=== PATIENT | female | born 1950 | race Caucasian/White ===

== ENCOUNTER 2016-04-01 13:03 | Outpatient (CLI) | payer MEDICARE, OTHER ==
[2016-01-10 17:40] VITALS: BP 153/62
== END 2016-04-01 13:04 ==
LOC: POD 13:03
PROVIDERS: ATTEND Podiatrist
DX: B35.1 Tinea unguium (principal); M79.674 Pain in right toe(s); M79.675 Pain in left toe(s)
CPT/HCPCS: 11721; G0463

== ENCOUNTER 2016-06-03 09:39 | Outpatient (CLI) | payer MEDICARE, OTHER ==
[2016-01-10 17:40] VITALS: BP 153/62
== END 2016-06-03 09:40 ==
LOC: RT 09:39
PROVIDERS: ATTEND Internal Medicine Cardiovascular Disease
DX: I48.0 Paroxysmal atrial fibrillation (principal)

== ENCOUNTER 2016-06-08 14:09 | Outpatient (CLI) | payer MEDICARE, OTHER ==
[2016-01-10 17:40] VITALS: BP 153/62
== END 2016-06-08 14:10 ==
LOC: RT 14:09
PROVIDERS: ATTEND Internal Medicine Cardiovascular Disease
DX: I48.0 Paroxysmal atrial fibrillation (principal)

== ENCOUNTER 2016-06-21 15:26 | Outpatient (CLI) | payer MEDICARE, OTHER ==
[2016-01-10 17:40] VITALS: BP 153/62
== END 2016-06-21 15:27 ==
LOC: POD 15:26
PROVIDERS: ATTEND Podiatrist
DX: B35.1 Tinea unguium (principal); M79.674 Pain in right toe(s); M79.675 Pain in left toe(s)
CPT/HCPCS: 11721; G0463

== ENCOUNTER 2016-06-27 11:17 | Outpatient (CLI) | payer MEDICARE, OTHER ==
[2016-01-10 17:40] VITALS: BP 153/62
--- NOTE | 2016-06-27 15:41 | Diagnostic Imaging Report ---
[facility] [address] [facility].[address] [address] Report Submission Date: Jun 27, 2016 2:00:36 PM CDT Patient Study Name: OVIDIO WANG Date: Jun 27, 2016 11:24:39 AM CDT Modality Type: CR Gender: F Description: SHOULDER : 46 [facility] Physician: RADHA FORBES (STRAIGHTEDGE MAN) - OP Left shoulder -two views CLINICAL HISTORY: Pain. Decreased range of motion. FINDINGS: Examination left shoulder in AP view with internal and external rotation of the humerus fails to demonstrate evidence of fracture. There is minimal apical pleural thickening. Aortic stent graft is evident overlying the region of the aortic arch. IMPRESSION: Negative left shoulder. Electronically signed on Jun 27, 2016 2:00:36 PM CDT by: Christopher NEWMAN
--- NOTE | 2016-06-27 16:31 | Diagnostic Imaging Report ---
[facility] [address] [address] Report Submission Date: Jun 27, 2016 4:30:19 PM CDT Patient Study Name: OVIDIO WANG Date: Jun 27, 2016 11:27:23 AM CDT Modality Type: CR Gender: F Description: ABDOMEN : 46 Institution: [facility] Physician: RADHA FORBES (PRIVATE WEALTH ADVISOR) - OP Abdomen - one-view Clinical history: Nausea. Constipation. Findings: Examination abdomen in single AP view with comparison to examination of 05/27/2015 demonstrates thoracolumbar scoliosis. There are multiple surgical clips in the right side of the abdomen. Abdominal bowel gas pattern is unremarkable without evidence of obstruction or free air. There are no unusual intra-abdominal calcifications. Impression: 1. Postoperative abdomen. 2. Scoliosis. 3. No significant change. Electronically signed on Jun 27, 2016 4:30:19 PM CDT by: Christopher NEWMAN
== END 2016-06-27 11:20 ==
LOC: RAD 11:17
PROVIDERS: ATTEND Nurse Practitioner Family
DX: K59.00 Constipation, unspecified (principal)
CPT/HCPCS: 73030; 74020

== ENCOUNTER 2016-07-06 11:55 | Outpatient (CLI) | payer MEDICARE, OTHER ==
[2016-01-10 17:40] VITALS: BP 153/62
== END 2016-07-06 11:56 ==
LOC: RT 11:55
PROVIDERS: ATTEND Internal Medicine Cardiovascular Disease
DX: I48.0 Paroxysmal atrial fibrillation (principal)

== ENCOUNTER 2016-09-08 09:42 | Outpatient (CLI) | payer MEDICARE, OTHER ==
[2016-01-10 17:40] VITALS: BP 153/62
== END 2016-09-08 09:43 ==
LOC: RT 09:42
PROVIDERS: ATTEND Internal Medicine Cardiovascular Disease
DX: I48.0 Paroxysmal atrial fibrillation (principal)

== ENCOUNTER 2016-09-12 09:23 | Outpatient (CLI) | payer MEDICARE, OTHER ==
[2016-01-10 17:40] VITALS: BP 153/62
== END 2016-09-12 09:24 ==
LOC: RT 09:23
PROVIDERS: ATTEND Internal Medicine Cardiovascular Disease
DX: I48.0 Paroxysmal atrial fibrillation (principal)

== ENCOUNTER 2016-09-14 14:39 | Outpatient (CLI) | payer MEDICARE, OTHER ==
[2016-01-10 17:40] VITALS: BP 153/62
[2016-09-14 15:12] LABS: MEAN CORPUSCULAR HEMOGLOBIN 32.8 pg (28.0-34.0); MEAN CORPUSCULAR VOLUME 99.9 fl (80.0-100.0)
[2016-09-14 15:41] LABS: eGFR (African) > 60; eGFR (Non-African) > 60
[2016-09-15 00:21] LABS: T3 TOTAL 104.3 ng/dL (80.0-200.0); T3-UPTAKE 31.4 % (25.4-41.2)
== END 2016-09-14 14:40 ==
LOC: LAB 14:39
PROVIDERS: ATTEND Internal Medicine Cardiovascular Disease
DX: I48.0 Paroxysmal atrial fibrillation (principal)
CPT/HCPCS: 36415; 80048; 84436; 84439; 84443; 84479; 84480; 85027

== ENCOUNTER 2016-09-14 15:28 | Emergency (ER) | payer MEDICARE, OTHER ==
[2016-09-14 16:28] LABS: BASOPHILS % 1.7 (0.0-1.5); EOSINOPHILS % 1.9 % (0.0-6.8); MEAN CORPUSCULAR HEMOGLOBIN 33.6 pg (28.0-34.0); MEAN CORPUSCULAR VOLUME 98.1 fl (80.0-100.0); MONOCYTES % 7.7 % (0.0-11.0); NEUTROPHILS # 3.6 # k/uL (1.4-7.7)
[2016-09-14 16:42] LABS: eGFR (African) > 60; eGFR (Non-African) > 60
[2016-09-14] MEDS ORDERED: ONDANSETRON HCL 4 MG TAB.RAPDIS PO ONE (16:50)
--- NOTE | 2016-09-14 16:57 | ED Physician Documentation ---
Chest Pain - HISTORIAN Historian: patient, spouse - HPI Stated Complaint: Chest Pressure Chief Complaint: Chest Pain Additional Information: she has chronic intermittant A-fib. This happened 1 week ago. It happenend this morning and cont. She has a young adult librarian but has been unable tospeak with him. she is well known here and at [facility]. the cardilogy nurse told her to come to [facility]. she came here. She atates that she has never had her a- fib corrected in the ER and always has to be admitted. She has no new meds. She has the same signs and symptoms as from prev episodes. Onset: hours Timing: sudden onset Duration: constant Last known Well Date: 09/14/16 Last Known Well Time: 16:21 Last known Well Code/Unknown Code: Unknown Context: sleep Severity: mild Quality: tightness Chest Pain Radiation: no radiation Chest Pain Signs/Symptoms: denies: nausea, vomiting, diaphoresis, cool extremities, dizziness, dyspnea Worsened By: nothing Relieved By: nothing Further Comments: no - ROS CONST: none MS/LYMPH: none GI/: none EYES/ENT: none SKIN/ENDO: none NEURO/PSYCH: none - PAST HX NE risk factors: hypertension, A-Fib DVT/PE Risk Factors: none TAD/AAA risk factors: none Neuro deficit: none GI disease: none Lung disease: none Surgeries/Procedures: none Allergies/Adverse Reactions: Allergies Allergy/AdvReac Type Severity Reaction Status Date / Time codeine Allergy Intermediate Hallucinati Verified 01/10/16 17:39 ons Penicillins Allergy Intermediate Hives Verified 01/10/16 17:39 Sulfa (Sulfonamide Allergy Intermediate Hives Verified 01/10/16 17:39 Antibiotics) Home Medications: Ambulatory Orders Medication Instructions Recorded Potassium Chloride 20 meq PO D 04/24/13 Apixaban [Eliquis] 5 mg PO BID 10/18/13 Isosorbide Mononitrate [Isosorbide 30 mg PO HS 10/18/13 Mononitrate ER] Nifedipine [Nifedipine ER] 30 mg PO DAILY 10/16/14 Sotalol HCl [Betapace] 120 mg PO BID 10/16/14 Esomeprazole Magnesium [Nexium] 40 mg PO DAILY 01/29/15 Docusate Sodium [Colace] 200 mg PO BID 04/27/15 Lisinopril 10 mg PO BID 04/27/15 Lubiprostone [Amitiza] 24 mcg PO DAILY 04/27/15 Polyethylene Glycol 3350 [Miralax] 17 gm PO DAILY 05/27/15 Bethanechol Chloride [Bethanechol 25 mg 09/14/16 Chloride] - SOCIAL HX Smoking History: non-smoker Alcohol Use: none Drug Use: none - FAMILY HX Family HX: none - VITAL SIGNS Vital Signs: Vital Signs Temp Pulse Resp BP Pulse Ox 97.6 F 102 H 16 149/80 95 09/14/16 15:30 09/14/16 15:30 09/14/16 15:30 09/14/16 15:30 09/14/16 15:30 - REVIEWED ASSESSMENTS Nursing Assessment Reviewed: Yes Vitals Reviewed: Yes Progress - Results/Orders Results/Orders: she remains stable, and as she prev stated, no time have they ever converted her A-fib in the ER. We talked to her and she will follow up with her crdiologist. Return if symptoms change. ED Results Lab/Radiology - Lab Results Lab Results: labs all look ok - Orders Orders: ED Orders Category Date Time Status Continuous EKG monitoring Q30M Care 09/14/16 16:16 Ordered Continuous Pulse Oximetry Q30M Care 09/14/16 16:16 Ordered CHEST 1 VIEW [RAD] Stat Exams 09/14/16 16:16 Ordered CBC/PLATELET/DIFF Routine Lab 09/14/16 16:16 Ordered CKMB Stat Lab 09/14/16 Ordered CMP Routine Lab 09/14/16 16:16 Ordered CREATINE KINASE Routine Lab 09/14/16 16:16 Ordered TROPONIN I (cTnI) Stat Lab 09/14/16 16:16 Ordered Oxygen Daily Oxygen 09/14/16 16:30 Ordered EKG WITH COMPARISON Stat Ther 09/14/16 16:16 Ordered Chest Pain Physical Exam - EXAM General Appearance: mild distress, anxious EENT: ENT inspection normal, no signs of dehydration Neck: nml inspection, no carotid bruit Respiratory: no resp. distress, chest non-tender, nml breath sounds CVS: pulses equal, irregularly irreg. rhythm Abdomen: soft Skin: warm/dry, normal color Extremities: non-tender, no edema Neuro: oriented X3 Discharge Clincal Impression: Atrial fib/flutter, transient Anxiety disorder Qualifiers: Anxiety disorder type: unspecified anxiety disorder Qualified Code(s): F41.9 - Anxiety disorder, unspecified Referrals: Olivia Diaz PRN [Primary Care Provider] - 2 Days Home Medications: Ambulatory Orders Potassium Chloride 20 meq PO D 04/24/13 Apixaban [Eliquis] 5 mg PO BID 10/18/13 Isosorbide Mononitrate [Isosorbide Mononitrate ER] 30 mg PO HS 10/18/13 Nifedipine [Nifedipine ER] 30 mg PO DAILY 10/16/14 Sotalol HCl [Betapace] 120 mg PO BID 10/16/14 Esomeprazole Magnesium [Nexium] 40 mg PO DAILY 01/29/15 Docusate Sodium [Colace] 200 mg PO BID 04/27/15 Lisinopril 10 mg PO BID 04/27/15 Lubiprostone [Amitiza] 24 mcg PO DAILY 04/27/15 Polyethylene Glycol 3350 [Miralax] 17 gm PO DAILY 05/27/15 Bethanechol Chloride [Bethanechol Chloride] 25 mg 09/14/16 Condition: Stable Disposition: 01 HOME, SELF-CARE Decision to Admit: NO Date of Decison to Admit: 09/14/16 Decision Time: 16:57
[2016-09-14 17:06] VITALS: BP 130/68
--- NOTE | 2016-09-14 19:00 | Diagnostic Imaging Report ---
NADIA NEAL [facility] [address] [facility].[address] [address] Report Submission Date: Sep 14, 2016 4:39:32 PM CDT Patient Study Name: OVIDIO WANG Date: Sep 14, 2016 4:18:35 PM CDT Modality Type: CR Gender: F Description: CHEST : 46 Institution: [facility] Physician: NADIA NEAL Examination: Portable chest History: Chest discomfort Findings: Single view of the chest demonstrates normal cardiac size. Surgical mesh in the region of the aortic arch. Apical parenchymal scarring. Right hemithorax volume loss. No blunting of the costophrenic margins. Osseous structures are appropriate for age. Impression: Apical parenchymal scarring and right volume loss. No gross basilar effusion or consolidation. Correlate with older exams and pertinent history. Electronically signed on Sep 14, 2016 4:39:32 PM CDT by: Luis Enrique NEWMAN
== END 2016-09-14 17:05 | disposition home or self-care (01) ==
LOC: ED 15:28
DX: I48.91 Unspecified atrial fibrillation (principal); F41.9 Anxiety disorder, unspecified; Z59.0 Homelessness
CPT/HCPCS: 71010; 80053; 82550; 82553; 84484; 85025; 99283; S1016

== ENCOUNTER 2016-10-04 14:02 | Outpatient (CLI) | payer MEDICARE, OTHER | END 2016-10-04 14:03 | LOC: POD 14:02 | PROVIDERS: ATTEND Podiatrist | DX: B35.1 Tinea unguium (principal); M79.674 Pain in right toe(s); M79.675 Pain in left toe(s) | CPT/HCPCS: 11721; G0463 ==

== ENCOUNTER 2016-10-14 13:17 | Outpatient (CLI) | payer MEDICARE, OTHER | END 2016-10-14 13:27 | LOC: RT 13:17 | PROVIDERS: ATTEND Internal Medicine Cardiovascular Disease | DX: Z53.9 Procedure and treatment not carried out, unspecified reason (principal) ==

== ENCOUNTER 2016-10-14 13:54 | Emergency (ER) | payer MEDICARE, OTHER ==
[2016-10-14] MEDS ORDERED: HEPARIN SODIUM,PORCINE/D5W 20,000 UNIT in PREMIX BAG 1 BAG IV ONE (14:07)
[2016-10-14] MEDS ORDERED: 0.9 % SODIUM CHLORIDE 1,000 ML IV ONE (14:11)
--- NOTE | 2016-10-14 14:13 | ED Physician Documentation ---
Chest Pain - HISTORIAN Historian: patient - HPI Stated Complaint: chest pain Chief Complaint: Chest Pain Additional Information: feels like back in a-fib Onset: minutes (30) Timing: sudden onset Duration: constant Last known Well Date: 10/14/16 Last Known Well Time: 13:00 Last known Well Code/Unknown Code: Unknown Context: activity Severity: moderate Quality: pressure, other (irregularity) Chest Pain Radiation: no radiation Chest Pain Signs/Symptoms: denies: nausea, vomiting Worsened By: nothing Relieved By: nothing Further Comments: no - ROS CONST: none MS/LYMPH: none GI/: none EYES/ENT: none SKIN/ENDO: none - PAST HX [place] risk factors: other (a-fib) DVT/PE Risk Factors: none TAD/AAA risk factors: none Neuro deficit: none GI disease: none Lung disease: none Surgeries/Procedures: pacemaker Immunizations: referred to PCP Allergies/Adverse Reactions: Allergies Allergy/AdvReac Type Severity Reaction Status Date / Time codeine Allergy Intermediate Hallucinati Verified 10/14/16 14:20 ons Penicillins Allergy Intermediate Hives Verified 10/14/16 14:20 Sulfa (Sulfonamide Allergy Intermediate Hives Verified 10/14/16 14:20 Antibiotics) Home Medications: Ambulatory Orders Medication Instructions Recorded Potassium Chloride 20 meq PO D 04/24/13 Apixaban [Eliquis] 5 mg PO BID 10/18/13 Isosorbide Mononitrate [Isosorbide 30 mg PO HS 10/18/13 Mononitrate ER] Nifedipine [Nifedipine ER] 30 mg PO DAILY 10/16/14 Sotalol HCl [Betapace] 120 mg PO BID 10/16/14 Esomeprazole Magnesium [Nexium] 40 mg PO DAILY 01/29/15 Docusate Sodium [Colace] 200 mg PO BID 04/27/15 Lisinopril 10 mg PO BID 04/27/15 Lubiprostone [Amitiza] 24 mcg PO DAILY 04/27/15 Polyethylene Glycol 3350 [Miralax] 17 gm PO DAILY 05/27/15 Bethanechol Chloride [Bethanechol 25 mg 09/14/16 Chloride] - SOCIAL HX Smoking History: non-smoker Alcohol Use: none Drug Use: none - FAMILY HX Family HX: none - VITAL SIGNS Vital Signs: Vital Signs Temp Pulse Resp BP Pulse Ox 130/68 09/14/16 17:05 - REVIEWED ASSESSMENTS Nursing Assessment Reviewed: Yes Vitals Reviewed: Yes Progress - Results/Orders Results/Orders: cbc, cmp, trop, pt/ptt/inr, cxr, ekg ordered - Progress Progress: pt. stable in er, bp 117/73, temp 98.1, pt. rates chest pain as 0/10 with medications running - see discharge page for treatment given Critical Care Note - Critical Care Note Total Time (mins): 0 ED Results Lab/Radiology - Lab Results Lab Results: pending - Radiology Radiology Impressions: clear of infiltrate - Orders Orders: ED Orders Category Date Time Status Place IV Lock 1T Care 10/14/16 14:02 Ordered CHEST 1 VIEW [RAD] Stat Exams 10/14/16 Ordered CBC/PLATELET/DIFF Routine Lab 10/14/16 Ordered CMP Routine Lab 10/14/16 Ordered PT-INR Routine Lab 10/14/16 Ordered PTT Routine Lab 10/14/16 Ordered TROPONIN I (cTnI) Stat Lab 10/14/16 Ordered Aspirin Med 10/14/16 14:05 Once 325 mg PO NOW ONE Heparin Sodium [Heparin] Med 10/14/16 14:05 Once 5,000 unit IVP NOW ONE Heparin Sodium,Porcine/D5w [Heparin] 20,000 unit Med 10/14/16 14:07 Ordered Premix Bag [Premix Fluid] 1 bag IV NOW NITROGLYCERIN/D5W @ 6 MLS/HR(250ml) Med 10/14/16 14:05 Ordered Nitroglycerin/D5w [Ntg 0.2 mg/ml in D5w] 50 mg in 250 ml IV 1T EKG WITH COMPARISON Stat Ther 10/14/16 Ordered Chest Pain Physical Exam - EXAM General Appearance: alert, mild distress, other (chest pain 0/10 after meds) EENT: eye inspection normal, ENT inspection normal, pharynx normal, no signs of dehydration, DARBY, no nystagmus Neck: nml inspection, no carotid bruit Respiratory: no resp. distress, nml breath sounds, other (chest tender from pacer insertiona dn bruised) CVS: irregularly irreg. rhythm Abdomen: soft, no organomegaly, normal bowel sounds, no abdominal bruit, no distension, non-tender Skin: warm/dry, normal color, other (bruising pacer insertion site) Extremities: non-tender, normal range of motion Neuro: oriented X3, CN's nml as tested, motor nml, sensation nml, mood/affect nml, cognition normal Discharge Clincal Impression: STEMI (ST elevation myocardial infarction) Qualifiers: Involved coronary artery: LAD coronary artery Qualified Code(s): I21.02 - ST elevation (STEMI) myocardial infarction involving left anterior descending coronary artery Referrals: Olivia Diaz, PRN [Primary Care Provider] - 2 Days Home Medications: Ambulatory Orders Potassium Chloride 20 meq PO D 04/24/13 Apixaban [Eliquis] 5 mg PO BID 10/18/13 Isosorbide Mononitrate [Isosorbide Mononitrate ER] 30 mg PO HS 10/18/13 Nifedipine [Nifedipine ER] 30 mg PO DAILY 10/16/14 Sotalol HCl [Betapace] 120 mg PO BID 10/16/14 Esomeprazole Magnesium [Nexium] 40 mg PO DAILY 01/29/15 Docusate Sodium [Colace] 200 mg PO BID 04/27/15 Lisinopril 10 mg PO BID 04/27/15 Lubiprostone [Amitiza] 24 mcg PO DAILY 04/27/15 Polyethylene Glycol 3350 [Miralax] 17 gm PO DAILY 05/27/15 Bethanechol Chloride [Bethanechol Chloride] 25 mg 09/14/16 Comments: EKG faxed to [facility], pt. given nitro drip at 10 mcg/min, 5000 units heparin bolus and 1000 units/hr drip, 324 mg asa orally. Condition: Critical Disposition: XFER SHT-TRM HOSP Decision to Admit: NO Decision Time: 02:10
[2016-10-14 14:15] LABS: BASOPHILS % 1.2 (0.0-1.5); EOSINOPHILS % 3.9 % (0.0-6.8); MEAN CORPUSCULAR HEMOGLOBIN 33.4 pg (28.0-34.0); MEAN CORPUSCULAR VOLUME 100.4 fl (80.0-100.0)
[2016-10-14] MEDS: NITROGLYCERIN/D5W 50 MG/250 ML ML IV ONE (14:24)
[2016-10-14] MEDS: 0.9 % SODIUM CHLORIDE 1,000 ML IV SCH (14:24)
[2016-10-14] MEDS: ASPIRIN 325 MG TABLET PO ONE (14:24)
[2016-10-14] MEDS: HEPARIN SODIUM 5000 UNIT/1 ML IVP ONE (14:24)
[2016-10-14 14:31] VITALS: BP 108/59
[2016-10-14 14:32] LABS: eGFR (African) > 60; eGFR (Non-African) > 60
--- NOTE | 2016-10-14 14:47 | Diagnostic Imaging Report ---
MIRZA BRO [facility] [address] [facility].[address] [address] Report Submission Date: Oct 14, 2016 2:17:20 PM CDT Patient Study Name: OVIDIO WANG Date: Oct 14, 2016 2:02:36 PM CDT Modality Type: CR Gender: F Description: CHEST : 46 Institution: [facility] Physician: MIRZA BRO Chest -one view CLINICAL HISTORY: Chest pain. Abnormal electrocardiogram. FINDINGS: Examination of the chest single portable AP view 10/14/2016 1402 hr with comparison to examination of 09/14/2016 demonstrates bilateral apical pleural thickening without significant change. Cardiovascular and mediastinal silhouettes are stable. Aortic stent graft is seen at the level of the thoracic aortic arch. There has been interval placement of right-sided transvenous pacemaker. Monitor leads superimpose the chest. There is no pneumothorax. IMPRESSION: Interval placement right transvenous pacemaker. Otherwise no significant change. Electronically signed on Oct 14, 2016 2:17:20 PM CDT by: Christopher NEWMAN
== END 2016-10-14 14:28 | disposition short-term general hospital (02) ==
LOC: ED 13:54
DX: I21.02 ST elevation (STEMI) myocardial infarction involving left anterior descending coronary artery (principal)
CPT/HCPCS: 71010; 80053; 84484; 85025; 85610; 85730; 93005; A9270; J1644; J3490; J7030; 96365; 96366; 96376; 99284; S1016

== ENCOUNTER 2016-11-21 13:38 | Emergency (ER) | payer MEDICARE, OTHER ==
--- NOTE | 2016-11-21 13:53 | ED Physician Documentation ---
General Adult - HISTORIAN Historian: patient, spouse, paramedics - HPI Stated Complaint: fall, hip pain, hit head Chief Complaint: General Adult Onset: minutes Timing: still present Severity: moderate Further Comments: yes (Pt is a 66 yo female who fell at home while doing laundry. Pt has hx Afib, CAD, HTN, CHF, LA and had a pacemaker placed last month. It is unclear whether pt simply tripped and fell or whether she became light headed. Pt struck her head quite hard according to spouse and has a hematoma on the R side of her forehead. Pt denies LOC. Pt takes Xarelto. Pt has had significant edema in her lower extemities and has SpO2=86% on presentation. Pt is on 2 L [place] home O2. Pt states that she had chest pain during the night last night. Denies n/v.) - ROS CONST: weakness EYES/ENT: none CVS/RESP: shortness of breath MS/SKIN/LYMPH: leg swelling, ankle swelling NEURO/PSYCH: other (weakness) - PAST HX Past History: other (Afib, CAD, HTN, LA, recent pacemaker, ibs, anemia.) Surgeries/Procedures: other (pacemaker) Allergies/Adverse Reactions: Allergies Allergy/AdvReac Type Severity Reaction Status Date / Time codeine Allergy Intermediate Hallucinati Verified 11/21/16 14:22 ons Penicillins Allergy Intermediate Hives Verified 11/21/16 14:22 Sulfa (Sulfonamide Allergy Intermediate Hives Verified 11/21/16 14:22 Antibiotics) Home Medications: Ambulatory Orders Medication Instructions Recorded Apixaban [Eliquis] 5 mg PO BID 10/18/13 Isosorbide Mononitrate [Isosorbide 60 mg PO HS 10/18/13 Mononitrate ER] Esomeprazole Magnesium [Nexium] 40 mg PO BID 01/29/15 Lisinopril 20 mg PO BID 04/27/15 Bethanechol Chloride [Bethanechol 25 mg PO BID 09/14/16 Chloride] Amiodarone HCl [Pacerone] 200 mg PO DAILY 11/21/16 Carvedilol [Coreg] 12.5 mg PO BID 11/21/16 Dicyclomine HCl [Dicyclomine HCl] 10 mg PO QID 11/21/16 Furosemide [Furosemide] 20 mg PO DAILY 11/21/16 Omeprazole [Prilosec] 40 mg PO BID 11/21/16 Ondansetron HCl Rapdis [Zofran ODT] 4 mg PO QID PRN 11/21/16 Pantoprazole Sodium [Protonix] 40 mg PO BID 11/21/16 Paroxetine HCl [Paxil] 40 mg PO DAILY 11/21/16 Spironolactone [Aldactone] 25 mg PO DAILY 11/21/16 Tamsulosin HCl [Flomax] 0.4 mg PO DAILY 11/21/16 - SOCIAL HX Smoking History: other (former smoker with heavy smoking hx) - FAMILY HX Family History: No - VITAL SIGNS Vital Signs: Vital Signs Temp Pulse Resp BP Pulse Ox 108/59 10/14/16 14:28 - REVIEWED ASSESSMENTS Nursing Assessment Reviewed: Yes Vitals Reviewed: Yes Progress - Progress Progress: Lasix 40 mg IV KCl [address] head: Age related changes. No acute parenchymal process. No hemorrhage. Scalp hematoma. X-ray R hip: Small avulsion involving the greater trochanter. No other fractures or hip dislocation. CXR: Single view of the chest demonstrates a prominent cardiac silhouette. Moderate bibasilar effusion/consolidations, left greater than right. Apical parenchymal interstitial prominence. Stent involving the aortic arch. Right sided cardiac pacemaker. Osseous structures are appropriate for age. Transfer to [facility], Dr. Palm. - EKG/XRAY/CT EKG: rhythm (paced rhythm; non-specific ST & T wave abnormality.) General Adult Physical Exam - PHYSICAL EXAM GENERAL APPEARANCE: moderate distress EENT: eye inspection normal, pharynx normal NECK: normal inspection, supple RESPIRATORY: chest non-tender, rales CVS: heart sounds normal ABDOMEN: soft, no organomegaly, normal bowel sounds BACK: normal inspection, no CVA tenderness SKIN: pallor EXTREMITIES: normal range of motion, edema (3+ edema b/l LE's) NEURO: oriented X3, motor nml, sensation nml Discharge Clincal Impression: fall, Minor head trauma, small avulsion fx, R hip CHF exacerbation Qualifiers: Congestive heart failure type: unspecified congestive heart failure type Qualified Code(s): I50.9 - Heart failure, unspecified Referrals: Olivia Diaz PRN [Primary Care Provider] - Condition: Stable Decision to Admit: NO Decision Time: 17:00
[2016-11-21 14:17] LABS: BASOPHILS % 0.3 (0.0-1.5); EOSINOPHILS % 2.4 % (0.0-6.8); MEAN CORPUSCULAR HEMOGLOBIN 31.4 pg (28.0-34.0); MONOCYTES % 5.8 % (0.0-11.0); NEUTROPHILS # 6.8 # k/uL (1.4-7.7)
[2016-11-21 14:36] LABS: eGFR (African) > 60; eGFR (Non-African) > 60
[2016-11-21] MEDS: POTASSIUM CHLORIDE 20 MEQ TABLET.ER PO ONE (15:23)
[2016-11-21] MEDS: FUROSEMIDE 20 MG/2 ML VIAL IVP ONE (15:31)
--- NOTE | 2016-11-21 16:23 | Diagnostic Imaging Report ---
[facility] [address] [facility] [address] [place] [address]. [id number] Report Submission Date: Nov 21, 2016 3:22:36 PM CDT Patient Study Name: OVIDIO WANG Date: Nov 21, 2016 2:41:27 PM CDT Modality Type: CT\SR Gender: F Description: CT BRAIN W/O CONTRAST : 46 Institution: [facility] Physician: GREGORY CONRAD - JUANA Examination: CT head without contrast History: Fall Comparison exam: None available Technique: Noncontrast head CT protocol. Findings: Ventricles and sulci are consistent for patient age. Cerebrocerebellar parenchyma demonstrates periventricular low attenuation consistent with small vessel disease. No evidence for parenchymal hemorrhage. No evidence for mass or mass effect. No midline shift. No extra axial fluid collections. Partial visualization of the paranasal sinuses, mastoid air cells, orbits, and skull without gross regularity. Right anterior scalp hematoma. Impression: Age related changes. No acute parenchymal process. No hemorrhage. Scalp hematoma. Electronically signed on Nov 21, 2016 3:22:36 PM CDT by: Luis Enrique NEWMAN
--- NOTE | 2016-11-21 16:23 | Diagnostic Imaging Report ---
[facility] [address] [facility].[address] [address] Report Submission Date: Nov 21, 2016 3:25:57 PM CDT Patient Study Name: OVIDIO WANG Date: Nov 21, 2016 2:26:23 PM CDT Modality Type: CR Gender: F Description: PELVIS : 46 Institution: [facility] Physician: GREGORY CONRAD - ER Examination: Plain film hip History: Fall Comparison exams: None provided Findings: 2 views of the hip demonstrates osteopenia. Small linear lucency involving the greater trochanteric region. No evidence for lucency or cortical disruption involving the femoral head or neck. Visualized aspect of the superior and inferior pubic rami and iliac wing are without cortical irregularity. No soft tissue abnormality. Impression: Small avulsion involving the greater trochanter. No other fractures or hip dislocation. Electronically signed on Nov 21, 2016 3:25:57 PM CDT by: Luis Enrique NEWMAN
[2016-11-21 17:31] VITALS: BP 121/50
--- NOTE | 2016-11-21 17:33 | Diagnostic Imaging Report ---
[facility] [address] [facility].[address] [address] Report Submission Date: Nov 21, 2016 3:28:13 PM CDT Patient Study Name: OVIDIO WANG Date: Nov 21, 2016 2:19:08 PM CDT Modality Type: CR Gender: F Description: CHEST : 46 Institution: [facility] Physician: GREGORY CONRAD - ER Examination: Portable chest History: Chest discomfort Comparison exam: 14 October 2016 Findings: Single view of the chest demonstrates a prominent cardiac silhouette. Moderate bibasilar effusion/consolidations, left greater than right. Apical parenchymal interstitial prominence. Stent involving the aortic arch. Right sided cardiac pacemaker. Osseous structures are appropriate for age. Impression: Left greater than right, bilateral effusions/consolidations. Infiltrate versus congestive failure. Electronically signed on Nov 21, 2016 3:28:13 PM CDT by: Luis Enrique NEWMAN
== END 2016-11-21 17:15 ==
LOC: ED 13:38
DX: S09.90XA Unspecified injury of head, initial encounter (principal); S72.001A Fracture of unspecified part of neck of right femur, initial encounter for closed fracture; W19.XXXA Unspecified fall, initial encounter; Y93.9 Activity, unspecified; Y99.9 Unspecified external cause status; I50.9 Heart failure, unspecified
CPT/HCPCS: 51702; 70450; 71010; 73502; 80053; 82550; 82553; 83880; 84484; 85025; 93005; A9270; J1940; 96374; 99284; S1016

== ENCOUNTER 2016-12-09 13:50 | Inpatient (IN) | payer MEDICARE, OTHER ==
--- NOTE | 2016-12-09 14:47 | History and Physical Report ---
History of Present Illnes - History of Present Illness Reason for Visit: gait disturbance from hip fracture History of Present Illness: 66yo white female who fell at her home and sustained a right greater tronchanteric hip fracture and contusion the the right forehead area. Patient had been using a walker at home due to her chronic weakness related chronic illness. Patient was seen at [facility] and it was elected to treat the patient conservatively. Patient did develop some acute on chronic CHF related to stress cardiomyopathy. Patient developed a pleural effusion on the right and had a thoratensis. Her CHF has been stable over the last several days. Has had a urinary tract infection and is finishing up antibiotic therapy for it. Patient is being evaluated and treated for PT and OT. 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: Other (Obstructive sleep apnea) Gastrointestinal: GERD, Irritable bowel disease Heme/Onc: Anemia NOS, Cancer (Breast - s/p mastectomy) Psych: Anxiety Musculoskeletal: Other (pathologic hip fracture- osteoporosis) Rheumatologic: Rheumatoid arthritis Endocrine: 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's thyroiditis), Osteoporosis - Past Surgical History Past Surgical History: Cataract Removal, Hysterectomy, Other (nephrectomy) - Past Family History Mother Family History: Cancer (Bladder), (70yo) Father Family History: CAD, DM (66yo), Sister 1 Family History: Other (allergic rhinnitis) - Past Social History Smoke: # pack years, Quit Alcohol: None Drugs: None Lives: With Family - Health Maintenance Health Maintenance: Pneumococcal Vaccine, Mammogram, Colonoscopy, DEXA Influenza Vaccine: No Pneumonia Vaccine: No Resuscitation Status: DNR - Unable to Obtain History Unable to Obtain: No Review of Systems - Review of Systems Constitutional: Weakness. negative: Fever, Chills, Sweats Eyes: negative: pain, conjunctivae inflammation ENT: negative: Ear Pain, Ear Discharge, Nose Pain, Nose Discharge, Nose Congestion, Mouth Pain, Mouth Swelling, Throat Swelling Respiratory: Cough, Dry, Shortness of Breath, SOB with Excertion. negative: Hemoptysis, Pleuritic Pain, Sputum, Wheezing Cardiovascular: Palpitations. negative: Chest Pain, Orthopnea, Paroxysmal Noc. Dyspnea, Edema, [place] Gastrointestinal: Constipation. negative: Nausea, Vomiting, Abdominal Pain, Diarrhea, Melena, Hematochezia Genitourinary: negative: Dysuria, Frequency, Incontinence, Hematuria Musculoskeletal: Leg Pain (right hip) Skin: negative: Rash Neurological: Weakness (generalized). negative: Seizures, Deferred - Medications/Allergies Allergies/Adverse Reactions: Allergies Allergy/AdvReac Type Severity Reaction Status Date / Time codeine Allergy Intermediate Hallucinati Verified 11/21/16 14:22 ons Penicillins Allergy Intermediate Hives Verified 11/21/16 14:22 Sulfa (Sulfonamide Allergy Intermediate Hives Verified 11/21/16 14:22 Antibiotics) Home Medications: Home Medications Acetaminophen [Tylenol Extra Strength] 500 mg PO Q6 PRN 12/09/16 Docusate Sodium [Colace] 100 mg PO BID 12/09/16 Lubiprostone [Amitiza] 24 mcg PO DAILY 12/09/16 Trimethobenzamide HCl [Tigan] 300 mg PO TID 12/09/16 Exam - Exam General: Alert, Oriented to Person, Oriented to Place, Oriented to Time, Cooperative, No acute distress HEENT: Atraumatic, PERRLA, Mouth Mucous membr. moist/[place], Nose Mucous membr. moist/[place], Edentulous, Hearing Grossly Normal Neck: Stridor, Normal Range of Motion. No: Lymphadenopathy Carotids: WNL Thyroid: WNL Lungs: Normal air movement, Speaks full Sentences, Respiratory Distress (mild), Rales (in base). No: Wheezes, Rhonchi, Prolonged Expiration Cardiovascular: Regular rate, Normal S1, Normal S2, No murmurs. No: Gallops, Rubs, Murmur Abdomen: Normal bowel sounds, Soft, No tenderness, No hepatospenomegaly, No masses. No: Distended Integumentary: Normal, [place], Warm, Dry Extremities: No clubbing, No cyanosis, No edema Neurological: Normal speech, Strength Equal Bilat, Normal tone, Sensation intact , Cranial nerves 3-12 NL, Reflexes 2+. No: Normal gait (mildly ataxic) Psych/Mental Status: Mental status NL, Appropriate Affect, Intact Judgment. No : Mood NL (depress) Assessment/Plan - Assessment/Plan (1) Gait difficulty Status: Acute Assessment: due to greater tronchanteric fracture (2) Anxiety disorder Status: Acute Qualifiers: Anxiety disorder type: unspecified anxiety disorder Qualified Code(s): F41.9 - Anxiety disorder, unspecified Assessment: with component of depression (3) Atrial fib/flutter, transient Status: Acute Assessment: stable (4) Essential hypertension Status: Acute Assessment: Has been trying to keep the dyastolic in the low 100's. (5) Sleep apnea Status: Acute (6) Hypothyroidism Status: Chronic Qualifiers: Hypothyroidism type: due to Helen's thyroiditis Qualified Code(s): E03.8 - Other specified hypothyroidism; E06.3 - Autoimmune thyroiditis; E06.3 - Autoimmune thyroiditis; E06.3 - Autoimmune thyroiditis Assessment: will continue replacement therapy (7) UTI (urinary tract infection) Status: Acute Qualifiers: Urinary tract infection type: site unspecified Hematuria presence: without hematuria Qualified Code(s): N39.0 - Urinary tract infection, site not specified (8) Stress-induced cardiomyopathy Status: Acute Assessment: EF about 20-25%, will continue with fluid restrictions and medications. (9) Sick sinus syndrome Status: Acute Assessment: S/P pacemaker placement VTE Assessment - RISK FACTOR SCORE VTE RISK FACTOR SCORES: AGE OVER 60 YEARS, ANTICIPATED BED CONFINEMENT OR IMMOBILIZATION > 24 HOURS, CONGESTIVE HEART FAILURE OR MYOCARDIAL INFARCTION - RISK VTE HIGH RISK: SCORE OF 3-4 (RISK PROXIMAL DVT 4-8%) PROPHYLAXIS NEEDED (On anticoagulation therapy already)
[2016-12-09] MEDS ORDERED: ALPRAZOLAM 0.5 MG TABLET PO SCH (15:00)
[2016-12-09] MEDS: ONDANSETRON HCL 4 MG TAB.RAPDIS PO PRN ×2 (15:43→20:05)
[2016-12-09] MEDS: DICYCLOMINE HCL 20 MG TABLET PO SCH ×2 (17:17→18:52)
[2016-12-09] MEDS: ACETAMINOPHEN 500 MG TABLET PO PRN (17:21)
[2016-12-09] MEDS: APIXABAN 2.5 MG TABLET PO SCH (18:53)
[2016-12-09] MEDS: LISINOPRIL 20 MG TABLET PO SCH (18:53)
[2016-12-09] MEDS: ISOSORBIDE MONONITRATE 30 MG TAB.ER.24H PO SCH (18:53)
[2016-12-09] MEDS: CARVEDILOL 12.5 MG TABLET PO SCH (18:53)
[2016-12-09] MEDS: PANTOPRAZOLE SODIUM 40 MG TABLET PO SCH (18:54)
[2016-12-09] MEDS ORDERED: MAGNESIUM HYDROXIDE/AL HYDROX 30 ML UDC PO ONE (20:25)
[2016-12-09] MEDS ORDERED: ALPRAZOLAM 0.5 MG TABLET PO ONE (20:57)
[2016-12-10] MEDS: ONDANSETRON HCL 4 MG TAB.RAPDIS PO PRN ×2 (08:30→15:47)
[2016-12-10] MEDS: DICYCLOMINE HCL 20 MG TABLET PO SCH ×4 (08:31→20:31)
[2016-12-10] MEDS: CARVEDILOL 12.5 MG TABLET PO SCH ×2 (08:31→20:31)
[2016-12-10] MEDS: PANTOPRAZOLE SODIUM 40 MG TABLET PO SCH ×2 (08:31→20:31)
[2016-12-10] MEDS: APIXABAN 2.5 MG TABLET PO SCH ×2 (08:31→20:31)
[2016-12-10] MEDS: LISINOPRIL 20 MG TABLET PO SCH ×2 (08:31→20:31)
[2016-12-10] MEDS: SPIRONOLACTONE 25 MG TABLET PO SCH (08:32)
[2016-12-10] MEDS: FUROSEMIDE 20 MG TABLET PO SCH (08:32)
[2016-12-10] MEDS: AMIODARONE HCL 200 MG TABLET PO SCH (08:32)
[2016-12-10] MEDS: TAMSULOSIN HCL 0.4 MG CAP.ER.24H PO SCH (08:32)
[2016-12-10] MEDS ORDERED: LOPERAMIDE HCL 2 MG CAPSULE PO PRN (09:28)
[2016-12-10] MEDS: ACETAMINOPHEN 500 MG TABLET PO PRN (13:11)
[2016-12-10] MEDS: ISOSORBIDE MONONITRATE 30 MG TAB.ER.24H PO SCH (20:30)
[2016-12-10] MEDS: ALPRAZOLAM 0.5 MG TABLET PO PRN (21:18)
[2016-12-11] MEDS: AMIODARONE HCL 200 MG TABLET PO SCH (09:45)
[2016-12-11] MEDS: FUROSEMIDE 20 MG TABLET PO SCH (09:45)
[2016-12-11] MEDS: DICYCLOMINE HCL 20 MG TABLET PO SCH ×4 (09:46→20:40)
[2016-12-11] MEDS: APIXABAN 2.5 MG TABLET PO SCH ×2 (09:46→20:41)
[2016-12-11] MEDS: PANTOPRAZOLE SODIUM 40 MG TABLET PO SCH ×2 (09:46→20:41)
[2016-12-11] MEDS: LISINOPRIL 20 MG TABLET PO SCH ×2 (09:46→20:41)
[2016-12-11] MEDS: SPIRONOLACTONE 25 MG TABLET PO SCH (09:46)
[2016-12-11] MEDS: CARVEDILOL 12.5 MG TABLET PO SCH ×2 (09:46→20:40)
[2016-12-11] MEDS: TAMSULOSIN HCL 0.4 MG CAP.ER.24H PO SCH (09:47)
[2016-12-11] MEDS: ACETAMINOPHEN 500 MG TABLET PO PRN (13:40)
[2016-12-11] MEDS: ONDANSETRON HCL 4 MG TAB.RAPDIS PO PRN (13:41)
[2016-12-11] MEDS: ISOSORBIDE MONONITRATE 30 MG TAB.ER.24H PO SCH (20:41)
[2016-12-11] MEDS: ALPRAZOLAM 0.5 MG TABLET PO PRN (20:43)
[2016-12-12 06:41] LABS: MEAN CORPUSCULAR HEMOGLOBIN 31.2 pg (28.0-34.0); MEAN CORPUSCULAR VOLUME 96.6 fl (80.0-100.0)
[2016-12-12 06:56] LABS: eGFR (African) > 60; eGFR (Non-African) > 60
[2016-12-12 07:07] LABS: ANISOCYTOSIS 1+ (NEGATIVE); BASOPHILS % 2 % (0-2); EOSINOPHILS % 2 % (0-7); HYPOCHROMASIA 1+ (NEGATIVE); MONOCYTES % 1 % (0-11); SEGMENTED NEUTROPHILS % 77 % (39-79)
[2016-12-12] MEDS: DICYCLOMINE HCL 20 MG TABLET PO SCH ×4 (09:24→19:38)
[2016-12-12] MEDS: CARVEDILOL 12.5 MG TABLET PO SCH ×2 (09:25→19:40)
[2016-12-12] MEDS: APIXABAN 2.5 MG TABLET PO SCH ×2 (09:25→19:39)
[2016-12-12] MEDS: ACETAMINOPHEN 500 MG TABLET PO PRN ×2 (09:29→19:39)
[2016-12-12] MEDS: ONDANSETRON HCL 4 MG TAB.RAPDIS PO PRN (09:29)
[2016-12-12] MEDS: LISINOPRIL 20 MG TABLET PO SCH ×2 (09:30→19:41)
[2016-12-12] MEDS: PANTOPRAZOLE SODIUM 40 MG TABLET PO SCH ×2 (09:30→19:41)
[2016-12-12] MEDS: SPIRONOLACTONE 25 MG TABLET PO SCH (09:30)
[2016-12-12] MEDS: FUROSEMIDE 20 MG TABLET PO SCH (09:31)
[2016-12-12] MEDS: TAMSULOSIN HCL 0.4 MG CAP.ER.24H PO SCH (09:31)
[2016-12-12] MEDS: AMIODARONE HCL 200 MG TABLET PO SCH (09:32)
[2016-12-12] MEDS: traMADol HCL 50 MG TABLET PO PRN ×2 (11:56→19:38)
[2016-12-12] MEDS: ISOSORBIDE MONONITRATE 30 MG TAB.ER.24H PO SCH (19:38)
[2016-12-12] MEDS: ALPRAZOLAM 0.5 MG TABLET PO PRN (23:41)
[2016-12-13] MEDS: FUROSEMIDE 20 MG TABLET PO SCH ×2 (06:03→15:49)
[2016-12-13] MEDS: CARVEDILOL 12.5 MG TABLET PO SCH ×2 (08:31→20:05)
[2016-12-13] MEDS: APIXABAN 2.5 MG TABLET PO SCH ×2 (08:31→20:05)
[2016-12-13] MEDS: DICYCLOMINE HCL 20 MG TABLET PO SCH ×4 (08:32→20:05)
[2016-12-13] MEDS: PANTOPRAZOLE SODIUM 40 MG TABLET PO SCH ×2 (08:33→20:05)
[2016-12-13] MEDS: LISINOPRIL 20 MG TABLET PO SCH ×3 (08:33→20:07)
[2016-12-13] MEDS: SPIRONOLACTONE 25 MG TABLET PO SCH (08:34)
[2016-12-13] MEDS: AMIODARONE HCL 200 MG TABLET PO SCH (08:35)
[2016-12-13] MEDS: TAMSULOSIN HCL 0.4 MG CAP.ER.24H PO SCH (08:35)
[2016-12-13] MEDS: MAGNESIUM HYDROXIDE 400 MG/5 ML 30ML UDC PO PRN (09:29)
[2016-12-13] MEDS: ACETAMINOPHEN 500 MG TABLET PO PRN ×2 (11:38→16:49)
[2016-12-13] MEDS: traMADol HCL 50 MG TABLET PO PRN (15:49)
[2016-12-13] MEDS: ISOSORBIDE MONONITRATE 30 MG TAB.ER.24H PO SCH (20:05)
[2016-12-14] MEDS: FUROSEMIDE 20 MG TABLET PO SCH (06:03)
[2016-12-14 08:22] VITALS: BMI 17.3
[2016-12-14] MEDS: SPIRONOLACTONE 25 MG TABLET PO SCH (08:40)
[2016-12-14] MEDS: DICYCLOMINE HCL 20 MG TABLET PO SCH ×4 (08:41→20:30)
[2016-12-14] MEDS: CARVEDILOL 12.5 MG TABLET PO SCH ×2 (08:42→20:31)
[2016-12-14] MEDS: APIXABAN 2.5 MG TABLET PO SCH ×2 (08:42→20:31)
[2016-12-14] MEDS: AMIODARONE HCL 200 MG TABLET PO SCH (08:43)
[2016-12-14] MEDS: LISINOPRIL 20 MG TABLET PO SCH (08:43)
[2016-12-14] MEDS: TAMSULOSIN HCL 0.4 MG CAP.ER.24H PO SCH (08:43)
[2016-12-14] MEDS: PANTOPRAZOLE SODIUM 40 MG TABLET PO SCH ×2 (08:44→20:32)
[2016-12-14] MEDS: BISACODYL 10 MG SUPP.RECT RC PRN (10:18)
[2016-12-14] MEDS: MAGNESIUM HYDROXIDE 400 MG/5 ML 30ML UDC PO PRN (10:19)
[2016-12-14] MEDS: ACETAMINOPHEN 500 MG TABLET PO PRN ×2 (10:23→20:32)
[2016-12-14] MEDS: ISOSORBIDE MONONITRATE 30 MG TAB.ER.24H PO SCH (20:34)
[2016-12-14] MEDS: ALPRAZOLAM 0.5 MG TABLET PO PRN (21:33)
[2016-12-15] MEDS: ACETAMINOPHEN 500 MG TABLET PO PRN ×3 (06:14→17:23)
[2016-12-15] MEDS: FUROSEMIDE 20 MG TABLET PO SCH ×2 (06:14→13:04)
[2016-12-15] MEDS: SPIRONOLACTONE 25 MG TABLET PO SCH (07:57)
[2016-12-15] MEDS: DICYCLOMINE HCL 20 MG TABLET PO SCH ×4 (07:58→20:42)
[2016-12-15] MEDS: CARVEDILOL 12.5 MG TABLET PO SCH ×2 (07:58→20:42)
[2016-12-15] MEDS: APIXABAN 2.5 MG TABLET PO SCH ×2 (07:58→20:43)
[2016-12-15] MEDS: TAMSULOSIN HCL 0.4 MG CAP.ER.24H PO SCH (07:59)
[2016-12-15] MEDS: AMIODARONE HCL 200 MG TABLET PO SCH (07:59)
[2016-12-15] MEDS: PANTOPRAZOLE SODIUM 40 MG TABLET PO SCH ×2 (07:59→20:43)
[2016-12-15] MEDS: LISINOPRIL 20 MG TABLET PO SCH (09:37)
[2016-12-15] MEDS: ONDANSETRON HCL 4 MG TAB.RAPDIS PO PRN (10:21)
[2016-12-15] MEDS: ISOSORBIDE MONONITRATE 30 MG TAB.ER.24H PO SCH (20:43)
[2016-12-15] MEDS: ALPRAZOLAM 0.5 MG TABLET PO PRN (21:49)
[2016-12-16] MEDS: FUROSEMIDE 20 MG TABLET PO SCH ×2 (06:13→13:20)
[2016-12-16 07:09] LABS: eGFR (African) > 60; eGFR (Non-African) > 60
[2016-12-16] MEDS: TAMSULOSIN HCL 0.4 MG CAP.ER.24H PO SCH (08:19)
[2016-12-16] MEDS: DICYCLOMINE HCL 20 MG TABLET PO SCH ×4 (08:19→20:16)
[2016-12-16] MEDS: SPIRONOLACTONE 25 MG TABLET PO SCH (08:19)
[2016-12-16] MEDS: CARVEDILOL 12.5 MG TABLET PO SCH ×2 (08:19→20:16)
[2016-12-16] MEDS: APIXABAN 2.5 MG TABLET PO SCH ×2 (08:19→20:16)
[2016-12-16] MEDS: PANTOPRAZOLE SODIUM 40 MG TABLET PO SCH ×2 (08:20→20:16)
[2016-12-16] MEDS: AMIODARONE HCL 200 MG TABLET PO SCH (08:20)
[2016-12-16] MEDS: ACETAMINOPHEN 500 MG TABLET PO PRN (11:22)
[2016-12-16] MEDS: LISINOPRIL 20 MG TABLET PO SCH (12:51)
[2016-12-16] MEDS: MAGNESIUM HYDROXIDE 400 MG/5 ML 30ML UDC PO PRN (13:18)
[2016-12-16] MEDS: traMADol HCL 50 MG TABLET PO PRN (16:49)
[2016-12-16] MEDS: ISOSORBIDE MONONITRATE 30 MG TAB.ER.24H PO SCH (20:16)
[2016-12-16] MEDS: LISINOPRIL 5 MG TABLET PO SCH (20:17)
[2016-12-16] MEDS: ALPRAZOLAM 0.5 MG TABLET PO PRN (22:00)
[2016-12-17] MEDS: FUROSEMIDE 20 MG TABLET PO SCH ×2 (05:50→13:09)
[2016-12-17] MEDS: ACETAMINOPHEN 500 MG TABLET PO PRN ×2 (08:04→13:09)
[2016-12-17] MEDS: MAGNESIUM HYDROXIDE 400 MG/5 ML 30ML UDC PO PRN (08:04)
[2016-12-17] MEDS: DICYCLOMINE HCL 20 MG TABLET PO SCH ×4 (08:05→20:31)
[2016-12-17] MEDS: SPIRONOLACTONE 25 MG TABLET PO SCH (08:05)
[2016-12-17] MEDS: CARVEDILOL 12.5 MG TABLET PO SCH ×3 (08:06→20:31)
[2016-12-17] MEDS: TAMSULOSIN HCL 0.4 MG CAP.ER.24H PO SCH (08:06)
[2016-12-17] MEDS: APIXABAN 2.5 MG TABLET PO SCH ×2 (08:06→20:31)
[2016-12-17] MEDS: AMIODARONE HCL 200 MG TABLET PO SCH (08:06)
[2016-12-17] MEDS: PANTOPRAZOLE SODIUM 40 MG TABLET PO SCH ×2 (08:07→20:31)
[2016-12-17] MEDS: LISINOPRIL 20 MG TABLET PO SCH (08:07)
[2016-12-17] MEDS: ONDANSETRON HCL 4 MG TAB.RAPDIS PO PRN (14:41)
[2016-12-17] MEDS: BISACODYL 10 MG SUPP.RECT RC PRN (14:41)
[2016-12-17] MEDS: traMADol HCL 50 MG TABLET PO PRN (17:14)
[2016-12-17] MEDS: LISINOPRIL 5 MG TABLET PO SCH (20:29)
[2016-12-17] MEDS: ISOSORBIDE MONONITRATE 30 MG TAB.ER.24H PO SCH (20:31)
[2016-12-17] MEDS: ALPRAZOLAM 0.5 MG TABLET PO PRN (21:24)
[2016-12-18] MEDS: FUROSEMIDE 20 MG TABLET PO SCH ×2 (06:15→13:30)
[2016-12-18] MEDS: DICYCLOMINE HCL 20 MG TABLET PO SCH ×4 (08:54→19:52)
[2016-12-18] MEDS: SPIRONOLACTONE 25 MG TABLET PO SCH (08:54)
[2016-12-18] MEDS: CARVEDILOL 12.5 MG TABLET PO SCH ×2 (08:55→19:53)
[2016-12-18] MEDS: TAMSULOSIN HCL 0.4 MG CAP.ER.24H PO SCH (08:56)
[2016-12-18] MEDS: AMIODARONE HCL 200 MG TABLET PO SCH (08:56)
[2016-12-18] MEDS: PANTOPRAZOLE SODIUM 40 MG TABLET PO SCH ×2 (08:57→19:54)
[2016-12-18] MEDS: LISINOPRIL 20 MG TABLET PO SCH (08:57)
[2016-12-18] MEDS: APIXABAN 2.5 MG TABLET PO SCH ×2 (08:59→19:53)
[2016-12-18] MEDS: ONDANSETRON HCL 4 MG TAB.RAPDIS PO PRN (11:04)
[2016-12-18] MEDS: ACETAMINOPHEN 500 MG TABLET PO PRN (17:27)
[2016-12-18] MEDS: ISOSORBIDE MONONITRATE 30 MG TAB.ER.24H PO SCH (19:51)
[2016-12-18] MEDS: LISINOPRIL 5 MG TABLET PO SCH (19:52)
[2016-12-18] MEDS: ALPRAZOLAM 0.5 MG TABLET PO PRN (21:30)
[2016-12-19] MEDS: FUROSEMIDE 20 MG TABLET PO SCH ×2 (06:15→13:13)
[2016-12-19] MEDS: CARVEDILOL 12.5 MG TABLET PO SCH ×2 (09:11→19:44)
[2016-12-19] MEDS: DICYCLOMINE HCL 20 MG TABLET PO SCH ×4 (09:11→19:44)
[2016-12-19] MEDS: PANTOPRAZOLE SODIUM 40 MG TABLET PO SCH ×2 (09:12→19:46)
[2016-12-19] MEDS: SPIRONOLACTONE 25 MG TABLET PO SCH (09:12)
[2016-12-19] MEDS: APIXABAN 2.5 MG TABLET PO SCH ×2 (09:12→19:45)
[2016-12-19] MEDS: TAMSULOSIN HCL 0.4 MG CAP.ER.24H PO SCH (09:13)
[2016-12-19] MEDS: AMIODARONE HCL 200 MG TABLET PO SCH (09:13)
[2016-12-19] MEDS: LISINOPRIL 20 MG TABLET PO SCH (09:14)
[2016-12-19] MEDS: ACETAMINOPHEN 500 MG TABLET PO PRN ×2 (10:37→18:00)
[2016-12-19] MEDS: ONDANSETRON HCL 4 MG TAB.RAPDIS PO PRN (16:59)
[2016-12-19] MEDS: ISOSORBIDE MONONITRATE 30 MG TAB.ER.24H PO SCH (19:46)
[2016-12-19] MEDS: LISINOPRIL 5 MG TABLET PO SCH (19:47)
[2016-12-19] MEDS: ALPRAZOLAM 0.5 MG TABLET PO PRN (19:49)
[2016-12-19] MEDS: traMADol HCL 50 MG TABLET PO PRN (19:49)
[2016-12-20] MEDS: FUROSEMIDE 20 MG TABLET PO SCH ×2 (06:24→14:42)
[2016-12-20] MEDS: SPIRONOLACTONE 25 MG TABLET PO SCH (08:13)
[2016-12-20] MEDS: DICYCLOMINE HCL 20 MG TABLET PO SCH ×4 (08:13→20:43)
[2016-12-20] MEDS: CARVEDILOL 12.5 MG TABLET PO SCH ×2 (08:14→20:12)
[2016-12-20] MEDS: APIXABAN 2.5 MG TABLET PO SCH ×2 (08:16→20:12)
[2016-12-20] MEDS: LISINOPRIL 20 MG TABLET PO SCH (08:17)
[2016-12-20] MEDS: AMIODARONE HCL 200 MG TABLET PO SCH (08:17)
[2016-12-20] MEDS: TAMSULOSIN HCL 0.4 MG CAP.ER.24H PO SCH (08:17)
[2016-12-20] MEDS: PANTOPRAZOLE SODIUM 40 MG TABLET PO SCH ×2 (08:18→20:13)
[2016-12-20] MEDS ORDERED: LISINOPRIL 5 MG TABLET PO ONE (09:00)
[2016-12-20] MEDS: ONDANSETRON HCL 4 MG TAB.RAPDIS PO PRN (09:11)
[2016-12-20] MEDS: ACETAMINOPHEN 500 MG TABLET PO PRN (09:12)
[2016-12-20] MEDS: traMADol HCL 50 MG TABLET PO PRN (13:22)
[2016-12-20] MEDS: ISOSORBIDE MONONITRATE 30 MG TAB.ER.24H PO SCH (20:13)
[2016-12-20] MEDS: ALPRAZOLAM 0.5 MG TABLET PO PRN (22:35)
[2016-12-21] MEDS: FUROSEMIDE 20 MG TABLET PO SCH ×2 (05:39→15:37)
[2016-12-21] MEDS: SPIRONOLACTONE 25 MG TABLET PO SCH (08:17)
[2016-12-21] MEDS: CARVEDILOL 12.5 MG TABLET PO SCH ×2 (08:18→19:35)
[2016-12-21] MEDS: DICYCLOMINE HCL 20 MG TABLET PO SCH ×4 (08:18→19:38)
[2016-12-21] MEDS: APIXABAN 2.5 MG TABLET PO SCH ×2 (08:18→19:35)
[2016-12-21] MEDS: TAMSULOSIN HCL 0.4 MG CAP.ER.24H PO SCH (08:19)
[2016-12-21] MEDS: AMIODARONE HCL 200 MG TABLET PO SCH (08:19)
[2016-12-21] MEDS: PANTOPRAZOLE SODIUM 40 MG TABLET PO SCH ×2 (08:20→19:35)
[2016-12-21] MEDS: ACETAMINOPHEN 500 MG TABLET PO PRN (09:48)
[2016-12-21] MEDS: traMADol HCL 50 MG TABLET PO PRN (12:17)
[2016-12-21] MEDS: LISINOPRIL 5 MG TABLET PO SCH (13:13)
[2016-12-21] MEDS: ONDANSETRON HCL 4 MG TAB.RAPDIS PO PRN (19:00)
[2016-12-21] MEDS: ISOSORBIDE MONONITRATE 30 MG TAB.ER.24H PO SCH (19:34)
[2016-12-22] MEDS: ALPRAZOLAM 0.5 MG TABLET PO PRN (01:05)
[2016-12-22] MEDS ORDERED: FUROSEMIDE 20 MG TABLET PO ONE (05:12)
[2016-12-22] MEDS: FUROSEMIDE 20 MG TABLET PO SCH (06:25)
[2016-12-22] MEDS: DICYCLOMINE HCL 20 MG TABLET PO SCH (08:49)
[2016-12-22] MEDS: APIXABAN 2.5 MG TABLET PO SCH (08:49)
[2016-12-22] MEDS: CARVEDILOL 12.5 MG TABLET PO SCH (08:49)
[2016-12-22] MEDS: TAMSULOSIN HCL 0.4 MG CAP.ER.24H PO SCH (08:50)
[2016-12-22] MEDS: PANTOPRAZOLE SODIUM 40 MG TABLET PO SCH (08:50)
[2016-12-22] MEDS: SPIRONOLACTONE 25 MG TABLET PO SCH (08:50)
[2016-12-22] MEDS: AMIODARONE HCL 200 MG TABLET PO SCH (08:51)
[2016-12-22] MEDS: LISINOPRIL 5 MG TABLET PO SCH (08:52)
[2016-12-22 08:55] VITALS: BP 108/66
[2016-12-22] MEDS: ONDANSETRON HCL 4 MG TAB.RAPDIS PO PRN (09:39)
[2016-12-22 10:38] LABS: APPEARANCE,URINE Clear (CLEAR); COLOR,URINE Yellow (YELLOW); OCCULT BLOOD,URINE Negative (NEGATIVE); UROBILINOGEN URINE 0.2 Eu (0.2-1.0)
[2016-12-22 10:47] LABS: AMORPHOUS SEDIMENT,UR FEW (NEGATIVE)
--- NOTE | 2016-12-23 17:07 | Discharge Summary ---
Discharge Summary - Discharge Sumary History of Present Illness: 66yo white female who fell at her home and sustained a right greater tronchanteric hip avulsion fracture and contusion the the right forehead area. Patient had been using a walker at home due to her chronic weakness related chronic illness. Patient was seen at [facility] and it was elected to treat the patient conservatively. Patient did develop some acute on chronic CHF related to stress cardiomyopathy. Patient developed a pleural effusion on the right and had a thoratensis. Her CHF has been stable over the last several days. Has had a urinary tract infection and is finishing up antibiotic therapy for it. Patient is being evaluated and treated for PT and OT. Condition at Discharge: Stable Home Medications: Ambulatory Orders Medication Instructions Recorded Apixaban [Eliquis] 5 mg PO BID 10/18/13 Isosorbide Mononitrate [Isosorbide 60 mg PO HS 10/18/13 Mononitrate ER] Esomeprazole Magnesium [Nexium] 40 mg PO BID 01/29/15 Bethanechol Chloride 25 mg PO BID 09/14/16 Amiodarone HCl [Pacerone] 200 mg PO DAILY 11/21/16 Carvedilol [Coreg] 12.5 mg PO BID 11/21/16 Dicyclomine HCl 10 mg PO QID 11/21/16 Omeprazole [Prilosec] 40 mg PO BID 11/21/16 Ondansetron HCl Rapdis [Zofran ODT] 4 mg PO QID PRN 11/21/16 Spironolactone [Aldactone] 25 mg PO DAILY 11/21/16 Tamsulosin HCl [Flomax] 0.4 mg PO DAILY 11/21/16 Acetaminophen [Tylenol Extra 500 mg PO Q6 PRN 12/09/16 Strength] Docusate Sodium [Colace] 100 mg PO BID 12/09/16 Lubiprostone [Amitiza] 24 mcg PO DAILY 12/09/16 Trimethobenzamide HCl [Tigan] 300 mg PO TID 12/09/16 Furosemide [Lasix] 20 mg PO 714 #60 tablet 12/22/16 Lisinopril [Prinivil] 5 mg PO DAILY #90 tablet 12/22/16 Consultations this Visit: None Procedures this Visit: None Allergies/Adverse Reactions: Allergies Allergy/AdvReac Type Severity Reaction Status Date / Time codeine Allergy Intermediate Hallucinati Verified 11/21/16 14:22 ons Penicillins Allergy Intermediate Hives Verified 11/21/16 14:22 Sulfa (Sulfonamide Allergy Intermediate Hives Verified 11/21/16 14:22 Antibiotics) Discharge Summary: Patient was started on physical and occupational therapy. Patient did make some good progress. It was highly motivated to participate with the therapy. At the time of discharge patient was continuing to walk with the aid of a walker. Patient was still a little unsteady with her gait. Patient was transferring better. Patient did finish the antibiotic therapy for urinary tract infection. Patient did not exhibit any symptoms of increasing congestive heart failure problems. Patient atrial fib remains stable without a tacky or aria rhythms. Patient did have some mild hypotensive episodes with the systolic blood pressure dropping into the 70s-80s. Patient lisinopril with decreased from 20 mg twice a day to 10 mg in the morning and 5 mg in the evening. We did hold patient's Lasix on two occasions because of hypertension and mildly increased BUN creatinine. Patient remained on adequate [place] therapy without any bleeding problems. Patient was subsequently discharged in stable condition. Patient was discharged home to the services of home health for further physical and occupational therapy and nursing evaluation for her congestive heart failure and atrial fibrillation. Patient will be followed by her primary care provider. - Final Diagnosis (1) Gait difficulty Problems: improved (2) Anxiety disorder Problems: stable (3) Atrial fib/flutter, transient Problems: stable (4) Essential hypertension Problems: stable with some episodes of hypotension (5) Sleep apnea Problems: stable (6) Hypothyroidism Problems: stable on home meds (7) UTI (urinary tract infection) Problems: resolved (8) Stress-induced cardiomyopathy Problems: stable (9) Sick sinus syndrome Problems: stable
--- NOTE | 2016-12-23 18:15 | Inpatient Progress Note ---
Subjective - Required Recertification Statement I anticipate X number of days because-include discharge plan: 14 days - Review of Systems Events since last encounter: Has been doing fairly well, feels that she is making some progress with PT/OT. Continues to have some constipation problems. Breathing and heart seem to be OK. General: Fatigue. Denies: Chills Pulmonary: Dyspnea (stable at baseline) Cardiovascular: Denies: Chest Pain, Palpitations Gastrointestinal: Constipation Objective - Exam Vitals and I&O: Vital Signs Temp 96.9 F L 12/22/16 08:54 Pulse 93 H 12/22/16 08:54 Resp 18 12/22/16 08:54 BP 108/66 12/22/16 08:54 Pulse Ox 97 12/22/16 08:54 General: Alert, Oriented to Person, Oriented to Place, Oriented to Time, Cooperative Neck: Supple, No JVD Lungs: Clear to auscultation, Normal air movement, Speaks full Sentences. No: Wheezes, Rales, Rhonchi Cardiovascular: Normal S1, Atrial Fib Abdomen: Normal bowel sounds, Soft, No tenderness. No: Distended Extremities: No clubbing, No cyanosis Skin: Normal, [place], Warm, Dry Psych/Mental Status: Mental status NL, Mood NL, Intact Judgment - Results Results: Laboratory Results WBC 4.79 K/ul (4.00-12.00) 12/12/16 06:25 RBC 3.19 M/ul (3.90-5.20) L 12/12/16 06:25 Hgb 9.9 g/dL (12.0-16.0) L 12/12/16 06:25 Hct 30.8 % (34.5-46.5) L 12/12/16 06:25 MCV 96.6 fl (80.0-100.0) 12/12/16 06:25 MCH 31.2 pg (28.0-34.0) 12/12/16 06:25 MCHC 32.2 g/dL (30.0-36.0) 12/12/16 06:25 RDW 16.5 % (11.3-14.3) H 12/12/16 06:25 Plt Count 311 K/mm3 (130-400) 12/12/16 06:25 Seg Neutrophils % 77 % (39-79) 12/12/16 06:25 Band Neutrophils % 1 % (0-12) 12/12/16 06:25 Lymphocytes % 17 % (16-50) 12/12/16 06:25 Monocytes % 1 % (0-11) 12/12/16 06:25 Eosinophils % 2 % (0-7) 12/12/16 06:25 Basophils % 2 % (0-2) 12/12/16 06:25 Plt Morphology Comment Normal (NORMAL) 12/12/16 06:25 Hypochromasia 1+ (NEGATIVE) H 12/12/16 06:25 Poikilocytosis 1+ (NEGATIVE) H 12/12/16 06:25 Anisocytosis 1+ (NEGATIVE) H 12/12/16 06:25 RBC Morph Comment Abnormal (NORMAL) H 12/12/16 06:25 Sodium 129 mmol/L (137-145) L 12/16/16 06:30 Potassium 4.1 mmol/L (3.5-5.1) 12/16/16 06:30 Chloride 94 mmol/L (98-107) L 12/16/16 06:30 Carbon Dioxide 30 mmol/L (22-30) 12/16/16 06:30 BUN 21 mg/dL (7-17) H 12/16/16 06:30 Creatinine 1.10 mg/dL (0.52-1.04) H 12/16/16 06:30 Estimated Creat Clear 50 12/16/16 06:30 Est GFR ( Amer) > 60 (60-) 12/16/16 06:30 Est GFR (Non-Af Amer) > 60 (60-) 12/16/16 06:30 Glucose 102 mg/dL (74-106) 12/16/16 06:30 Calcium 8.3 mg/dL (8.4-10.2) L 12/16/16 06:30 Total Bilirubin 0.5 mg/dL (0.2-1.3) 12/12/16 06:25 AST 36 U/L (15-46) 12/12/16 06:25 ALT 39 U/L (13-69) 12/12/16 06:25 Alkaline Phosphatase 150 U/L (38-126) H 12/12/16 06:25 Total Protein 6.0 g/dL (6.3-8.2) L 12/12/16 06:25 Albumin 2.9 g/dL (3.5-5.0) L 12/12/16 06:25 Urine Color Yellow (YELLOW) 12/22/16 10:30 Urine Appearance Clear (CLEAR) 12/22/16 10:30 Urine pH 7.0 (5.0 - 8.0) 12/22/16 10:30 Ur Specific [place] 1.015 (1.010-1.030) 12/22/16 10:30 Urine Protein Negative mg/dL (NEGATIVE) 12/22/16 10:30 Urine Ketones Negative mg/dL (NEGATIVE) 12/22/16 10:30 Urine Occult Blood Negative (NEGATIVE) 12/22/16 10:30 Urine Nitrite Negative (NEGATIVE) 12/22/16 10:30 Urine Bilirubin Negative (NEGATIVE) 12/22/16 10:30 Urine Urobilinogen 0.2 Eu (0.2-1.0) 12/22/16 10:30 Ur Leukocyte Esterase Trace (NEGATIVE) 12/22/16 10:30 Urine RBC 0-2 (0-2 HPF) 12/22/16 10:30 Urine WBC 0-2 (0-5 HPF) 12/22/16 10:30 Ur Squamous Epith Cells Few (NEG-FEW) 12/22/16 10:30 Amorphous Sediment Few (NEGATIVE) H 12/22/16 10:30 Urine Glucose Negative mg/dL (NEGATIVE) 12/22/16 10:30 Assessment/Plan - Assessment/Plan (1) Gait difficulty Status: Acute Assessment: improving (2) Anxiety disorder Status: Acute Qualifiers: Anxiety disorder type: unspecified anxiety disorder Qualified Code(s): F41.9 - Anxiety disorder, unspecified Assessment: stable (3) Atrial fib/flutter, transient Status: Chronic Assessment: stable (4) Essential hypertension Status: Chronic Assessment: stable (5) Hypothyroidism Status: Chronic Qualifiers: Hypothyroidism type: due to Josafat's thyroiditis Qualified Code(s): E03.8 - Other specified hypothyroidism; E06.3 - Autoimmune thyroiditis; E06.3 - Autoimmune thyroiditis; E06.3 - Autoimmune thyroiditis (6) UTI (urinary tract infection) Status: Acute Qualifiers: Urinary tract infection type: site unspecified Hematuria presence: without hematuria Qualified Code(s): N39.0 - Urinary tract infection, site not specified Assessment: finishing antibiotic (7) Stress-induced cardiomyopathy Status: Acute Assessment: stable (8) Sick sinus syndrome Status: Acute
--- NOTE | 2016-12-23 18:30 | Inpatient Progress Note ---
Subjective - Required Recertification Statement I anticipate X number of days because-include discharge plan: 5 days - Review of Systems Events since last encounter: Patient is doing well, continues to progress slowly with PT and PT. Planning discharge later this week. Face to face evaluation for home PT/OT/nursing visit. Patient is improved but is doing better but seems to be weak and unsteady and still an increase fall risk. Constipation seems to be doing better at this time. CHF/atrial fib and cardiomyopathy seems to be stable. Patient continues to have some hypotension, usually in the AM. I have been in contact with Dr Flynn's office and medications have been adjusted. Patient is tolerating fluid restrictions but does not like it. Cardiovascular: Denies: Chest Pain, Edema Gastrointestinal: Constipation. Denies: Nausea, Abdominal Pain, Diarrhea, Melena, Hematochezia Musculoskeletal: Leg Pain (stables have been removed, s/p ORIF hip fracture) Objective - Exam Vitals and I&O: Vital Signs Temp 96.9 F L 12/22/16 08:54 Pulse 93 H 12/22/16 08:54 Resp 18 12/22/16 08:54 BP 108/66 12/22/16 08:54 Pulse Ox 97 12/22/16 08:54 - Results Results: Laboratory Results WBC 4.79 K/ul (4.00-12.00) 12/12/16 06:25 RBC 3.19 M/ul (3.90-5.20) L 12/12/16 06:25 Hgb 9.9 g/dL (12.0-16.0) L 12/12/16 06:25 Hct 30.8 % (34.5-46.5) L 12/12/16 06:25 MCV 96.6 fl (80.0-100.0) 12/12/16 06:25 MCH 31.2 pg (28.0-34.0) 12/12/16 06:25 MCHC 32.2 g/dL (30.0-36.0) 12/12/16 06:25 RDW 16.5 % (11.3-14.3) H 12/12/16 06:25 Plt Count 311 K/mm3 (130-400) 12/12/16 06:25 Seg Neutrophils % 77 % (39-79) 12/12/16 06:25 Band Neutrophils % 1 % (0-12) 12/12/16 06:25 Lymphocytes % 17 % (16-50) 12/12/16 06:25 Monocytes % 1 % (0-11) 12/12/16 06:25 Eosinophils % 2 % (0-7) 12/12/16 06:25 Basophils % 2 % (0-2) 12/12/16 06:25 Plt Morphology Comment Normal (NORMAL) 12/12/16 06:25 Hypochromasia 1+ (NEGATIVE) H 12/12/16 06:25 Poikilocytosis 1+ (NEGATIVE) H 12/12/16 06:25 Anisocytosis 1+ (NEGATIVE) H 12/12/16 06:25 RBC Morph Comment Abnormal (NORMAL) H 12/12/16 06:25 Sodium 129 mmol/L (137-145) L 12/16/16 06:30 Potassium 4.1 mmol/L (3.5-5.1) 12/16/16 06:30 Chloride 94 mmol/L (98-107) L 12/16/16 06:30 Carbon Dioxide 30 mmol/L (22-30) 12/16/16 06:30 BUN 21 mg/dL (7-17) H 12/16/16 06:30 Creatinine 1.10 mg/dL (0.52-1.04) H 12/16/16 06:30 Estimated Creat Clear 50 12/16/16 06:30 Est GFR ( Amer) > 60 (60-) 12/16/16 06:30 Est GFR (Non-Af Amer) > 60 (60-) 12/16/16 06:30 Glucose 102 mg/dL (74-106) 12/16/16 06:30 Calcium 8.3 mg/dL (8.4-10.2) L 12/16/16 06:30 Total Bilirubin 0.5 mg/dL (0.2-1.3) 12/12/16 06:25 AST 36 U/L (15-46) 12/12/16 06:25 ALT 39 U/L (13-69) 12/12/16 06:25 Alkaline Phosphatase 150 U/L (38-126) H 12/12/16 06:25 Total Protein 6.0 g/dL (6.3-8.2) L 12/12/16 06:25 Albumin 2.9 g/dL (3.5-5.0) L 12/12/16 06:25 Urine Color Yellow (YELLOW) 12/22/16 10:30 Urine Appearance Clear (CLEAR) 12/22/16 10:30 Urine pH 7.0 (5.0 - 8.0) 12/22/16 10:30 Ur Specific [place] 1.015 (1.010-1.030) 12/22/16 10:30 Urine Protein Negative mg/dL (NEGATIVE) 12/22/16 10:30 Urine Ketones Negative mg/dL (NEGATIVE) 12/22/16 10:30 Urine Occult Blood Negative (NEGATIVE) 12/22/16 10:30 Urine Nitrite Negative (NEGATIVE) 12/22/16 10:30 Urine Bilirubin Negative (NEGATIVE) 12/22/16 10:30 Urine Urobilinogen 0.2 Eu (0.2-1.0) 12/22/16 10:30 Ur Leukocyte Esterase Trace (NEGATIVE) 12/22/16 10:30 Urine RBC 0-2 (0-2 HPF) 12/22/16 10:30 Urine WBC 0-2 (0-5 HPF) 12/22/16 10:30 Ur Squamous Epith Cells Few (NEG-FEW) 12/22/16 10:30 Amorphous Sediment Few (NEGATIVE) H 12/22/16 10:30 Urine Glucose Negative mg/dL (NEGATIVE) 12/22/16 10:30 Assessment/Plan - Assessment/Plan (1) Gait difficulty Status: Acute Assessment: s/p ORIF hip avulsion fracture (2) Anxiety disorder Status: Acute Qualifiers: Anxiety disorder type: unspecified anxiety disorder Qualified Code(s): F41.9 - Anxiety disorder, unspecified Assessment: stable (3) Atrial fib/flutter, transient Status: Chronic Assessment: stable (4) Essential hypertension Status: Chronic Assessment: stable (5) UTI (urinary tract infection) Status: Acute Qualifiers: Urinary tract infection type: site unspecified Hematuria presence: without hematuria Qualified Code(s): N39.0 - Urinary tract infection, site not specified
== END 2016-12-22 11:40 | disposition home health service (06) | DRG 93 ==
LOC: SOUTH 13:50
PROVIDERS: ADMIT Family Medicine; ATTEND Family Medicine
DX: R26.9 Unspecified abnormalities of gait and mobility (principal); F41.9 Anxiety disorder, unspecified; I48.91 Unspecified atrial fibrillation; I10 Essential (primary) hypertension; G47.33 Obstructive sleep apnea (adult) (pediatric); E03.9 Hypothyroidism, unspecified; I49.5 Sick sinus syndrome
CPT/HCPCS: 36415; 80048; 80053; 81002; 85025; 97110; 97116; 97162; 97165; 97530; 97535; A9270

== ENCOUNTER 2017-01-09 16:47 | Outpatient (CLI) | payer MEDICARE, OTHER ==
[2017-01-09 17:09] LABS: APPEARANCE,URINE Clear (CLEAR); COLOR,URINE Yellow (YELLOW); OCCULT BLOOD,URINE Negative (NEGATIVE); UROBILINOGEN URINE 0.2 Eu (0.2-1.0)
== END 2017-01-09 16:50 ==
LOC: LAB 16:47
PROVIDERS: ATTEND Family Medicine
DX: Z47.89 Encounter for other orthopedic aftercare (principal); R82.99 Other abnormal findings in urine
CPT/HCPCS: 81002; 87086

== ENCOUNTER 2017-02-03 11:13 | Outpatient (CLI) | payer MEDICARE, OTHER ==
[2017-02-03 11:37] LABS: BASOPHILS % 0.8 (0.0-1.5); EOSINOPHILS % 1.7 % (0.0-6.8); MEAN CORPUSCULAR VOLUME 99.9 fl (80.0-100.0); MONOCYTES % 5.4 % (0.0-11.0); NEUTROPHILS # 3.2 # k/uL (1.4-7.7)
[2017-02-03 13:26] LABS: eGFR (African) > 60; eGFR (Non-African) > 60
== END 2017-02-03 11:14 ==
LOC: LAB 11:13
PROVIDERS: ATTEND Nurse Practitioner Family
DX: I49.5 Sick sinus syndrome (principal); I50.23 Acute on chronic systolic (congestive) heart failure
CPT/HCPCS: 36415; 80053; 83880; 85025

== ENCOUNTER 2017-03-17 13:47 | Outpatient (CLI) | payer MEDICARE, OTHER ==
[2017-02-21 09:08] VITALS: BP 122/85
== END 2017-03-17 13:50 ==
LOC: POD 13:47
PROVIDERS: ATTEND Podiatrist
DX: B35.1 Tinea unguium (principal); M79.674 Pain in right toe(s); M79.675 Pain in left toe(s)
CPT/HCPCS: 11721; G0463

== ENCOUNTER 2017-04-19 08:38 | Outpatient (CLI) | payer MEDICARE, OTHER ==
[2017-02-21 09:08] VITALS: BP 122/85
[2017-04-19 09:33] LABS: eGFR (African) > 60; eGFR (Non-African) > 60
== END 2017-04-19 08:40 ==
LOC: LAB 08:38
PROVIDERS: ATTEND Internal Medicine Cardiovascular Disease
DX: I50.23 Acute on chronic systolic (congestive) heart failure (principal)
CPT/HCPCS: 36415; 80048

== ENCOUNTER 2017-04-24 09:29 | Outpatient (CLI) | payer MEDICARE, OTHER ==
[2017-02-21 09:08] VITALS: BP 122/85
[2017-04-24 10:10] LABS: eGFR (African) 41; eGFR (Non-African) 34
== END 2017-04-24 09:30 ==
LOC: LAB 09:29
PROVIDERS: ATTEND Internal Medicine Cardiovascular Disease
DX: I50.23 Acute on chronic systolic (congestive) heart failure (principal)
CPT/HCPCS: 36415; 80048

== ENCOUNTER 2017-04-25 19:52 | Emergency (ER) | payer MEDICARE, OTHER ==
--- NOTE | 2017-04-25 20:00 | ED Physician Documentation ---
General Adult - HISTORIAN Historian: patient, spouse - HPI Stated Complaint: unsteady gait Chief Complaint: General Adult Onset: other (for a while) Timing: still present Severity: mild Further Comments: yes (Per spouse the pt has had issues with unsteady gait since her hip replacement in Nov. She today was weak and unable to "walk normally" he states she thought she was falling and and she grabbed the towel pole and ripped it out of the wall and then did lower herself to sit on the ground. She denies any pain. 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 captain is aware.) Last known Well Code/Unknown Code: Unknown - ROS CONST: no problems EYES/ENT: none CVS/RESP: none GI/: none MS/SKIN/LYMPH: leg swelling NEURO/PSYCH: denies: headache - PAST HX Past History: A-Fib, CHF, hypertension Surgeries/Procedures: other Immunizations: UTD Allergies/Adverse Reactions: Allergies Allergy/AdvReac Type Severity Reaction Status Date / Time codeine Allergy Intermediate Hallucinati Verified 04/25/17 20:05 ons Penicillins Allergy Intermediate Hives Verified 04/25/17 20:05 Sulfa (Sulfonamide Allergy Intermediate Hives Verified 04/25/17 20:05 Antibiotics) Home Medications: Ambulatory Orders Medication Instructions Recorded Apixaban [Eliquis] 5 mg PO BID 10/18/13 Isosorbide Mononitrate [Isosorbide 60 mg PO HS 10/18/13 Mononitrate ER] Esomeprazole Magnesium [Nexium] 40 mg PO BID 01/29/15 Bethanechol Chloride 25 mg PO BID 09/14/16 Amiodarone HCl [Pacerone] 200 mg PO DAILY 11/21/16 Carvedilol [Coreg] 12.5 mg PO BS 11/21/16 Dicyclomine HCl 10 mg PO QID 11/21/16 Ondansetron HCl Rapdis [Zofran ODT] 4 mg PO QID PRN 11/21/16 Spironolactone [Aldactone] 12.5 mg PO DAILY 11/21/16 Tamsulosin HCl [Flomax] 0.4 mg PO DAILY 11/21/16 Acetaminophen [Tylenol Extra 500 mg PO Q6 PRN 12/09/16 Strength] Docusate Sodium [Colace] 100 mg PO BID 12/09/16 Furosemide [Lasix] 20 mg PO 714 #60 tablet 12/22/16 Lisinopril [Prinivil] 2.5 mg PO QD 04/25/17 Potassium Chloride [Klor-Con M20] 20 meq PO DAILY 04/25/17 Torsemide [Demadex] 40 mg PO BID 04/25/17 - SOCIAL HX Smoking History: non-smoker Alcohol Use: none Drug Use: none - FAMILY HX Family History: No - VITAL SIGNS Vital Signs: Vital Signs Temp Pulse Resp BP Pulse Ox 122/85 02/21/17 09:00 - REVIEWED ASSESSMENTS Nursing Assessment Reviewed: Yes Vitals Reviewed: Yes Progress - Progress Progress: 2320: Discussed case with [facility] general warehouse worker. Dr Ramey will be accepting. ED Results Lab/Radiology - Radiology Radiology Impressions: Portable chest Clinical history: ELEVATED BNP, CONFUSION, SOA Findings: Examination of the chest in single portable AP view demonstrates bilateral pleural effusions greater on the left with left basilar infiltrate or atelectasis. There is probable superimposed pulmonary vascular congestion. Cardiac silhouette is enlarged and the aorta is atherosclerotic. Thoracic aortic stent graft is present. Transvenous pacemaker overlies right hemithorax. Impression: 1. Cardiomegaly and aortic atherosclerosis. 2. Bilateral pleural effusions greater on the left with left basilar infiltrate or atelectasis. 3. Superimposed pulmonary vascular congestion. Electronically signed on Apr 25, 2017 10:19:23 PM NIGHT NURSE by: Christopher Pereira General Adult Physical Exam - PHYSICAL EXAM GENERAL APPEARANCE: no distress EENT: eye inspection normal, DARBY NECK: normal inspection RESPIRATORY: no resp distress, chest non-tender, breath sounds normal CVS: reg rate & rhythm, heart sounds normal, equal pulses, no murmur ABDOMEN: soft, non-tender, other (she has 2 + pitting edema on abdomen down ) SKIN: warm/dry, normal color EXTREMITIES: non-tender, normal range of motion, edema NEURO: oriented X3, CN's nml as tested, motor nml, sensation nml, mood/affect nml, cognition normal Discharge Clincal Impression: CHF (congestive heart failure) Qualifiers: Congestive heart failure type: unspecified Congestive heart failure chronicity : chronic Qualified Code(s): I50.9 - Heart failure, unspecified Referrals: Emily,Olivia G, PRN [REFERRING] - 2 Days Comments: [facility] transfer Condition: Fair Disposition: 09 ADMITTED INPATIENT Decision to Admit: [id number] Date of Decison to Admit: 04/25/17 Decision Time: 23:28
[2017-04-25 20:33] LABS: BASOPHILS % 0.4 (0.0-1.5); EOSINOPHILS % 1.6 % (0.0-6.8); MEAN CORPUSCULAR HEMOGLOBIN 28.5 pg (28.0-34.0); MONOCYTES % 6.8 % (0.0-11.0); NEUTROPHILS # 3.3 # k/uL (1.4-7.7)
[2017-04-25] MEDS ORDERED: FUROSEMIDE 20 MG/2 ML VIAL ONE (21:46)
[2017-04-25] MEDS ORDERED: FUROSEMIDE 20 MG/2 ML VIAL IVP ONE (21:46)
[2017-04-25 23:57] VITALS: BP 116/55
[2017-04-26 06:37] LABS: APPEARANCE,URINE CLEAR (CLEAR); COLOR,URINE YELLOW (YELLOW); OCCULT BLOOD,URINE NEGATIVE (NEGATIVE)
--- NOTE | 2017-04-26 07:00 | Diagnostic Imaging Report ---
ELIOT CABA [facility] [address] [facility] [address] [address] Report Submission Date: Apr 25, 2017 10:19:23 PM SKY LINE YARDER Patient Study Name: OVIDIO WANG Date: Apr 25, 2017 10:03:40 PM SKY LINE YARDER Modality Type: DX Gender: F Description: CHEST : 46 Institution: [facility] Physician: ELIOT CABA Portable chest Clinical history: ELEVATED BNP, CONFUSION, SOA Findings: Examination of the chest in single portable AP view demonstrates bilateral pleural effusions greater on the left with left basilar infiltrate or atelectasis. There is probable superimposed pulmonary vascular congestion. Cardiac silhouette is enlarged and the aorta is atherosclerotic. Thoracic aortic stent graft is present. Transvenous pacemaker overlies right hemithorax. Impression: 1. Cardiomegaly and aortic atherosclerosis. 2. Bilateral pleural effusions greater on the left with left basilar infiltrate or atelectasis. 3. Superimposed pulmonary vascular congestion. Electronically signed on Apr 25, 2017 10:19:23 PM SKY LINE YARDER by: Christopher NEWMAN
== END 2017-04-25 23:38 | disposition short-term general hospital (02) ==
LOC: ED 19:52
DX: I50.9 Heart failure, unspecified (principal)
CPT/HCPCS: 51702; 71045; 80053; 81002; 83880; 85025; J1940; 96374; 99283; 99284; S1016

== ENCOUNTER 2017-04-29 13:00 | Inpatient (IN) | payer MEDICARE, OTHER ==
[2017-04-29 17:08] VITALS: BMI 21.1
[2017-04-29] MEDS ORDERED: ONDANSETRON HCL 4 MG TAB.RAPDIS PO PRN (18:29)
[2017-04-29] MEDS: LISINOPRIL 2.5 MG TABLET PO SCH (19:10)
[2017-04-29] MEDS: ISOSORBIDE MONONITRATE 30 MG TAB.ER.24H PO SCH (21:52)
[2017-04-29] MEDS: APIXABAN 2.5 MG TABLET PO SCH (21:53)
[2017-04-29] MEDS: CARVEDILOL 6.25 MG TABLET PO SCH (21:53)
[2017-04-29] MEDS: DICYCLOMINE HCL 20 MG TABLET PO SCH (21:53)
[2017-04-29] MEDS ORDERED: BENAZEPRIL HCL 10 MG TABLET PO ONE (23:04)
[2017-04-30] MEDS: DICYCLOMINE HCL 20 MG TABLET PO SCH ×4 (01:29→18:50)
[2017-04-30] MEDS: CARVEDILOL 6.25 MG TABLET PO SCH ×2 (08:27→20:08)
[2017-04-30] MEDS: AMIODARONE HCL 200 MG TABLET PO SCH (08:27)
[2017-04-30] MEDS: SPIRONOLACTONE 25 MG TABLET PO SCH (08:27)
[2017-04-30] MEDS: APIXABAN 2.5 MG TABLET PO SCH ×2 (08:29→20:08)
[2017-04-30] MEDS: TAMSULOSIN HCL 0.4 MG CAP.ER.24H PO SCH (08:29)
[2017-04-30] MEDS: POTASSIUM CHLORIDE 20 MEQ TABLET.ER PO SCH (08:30)
[2017-04-30] MEDS: Non-Formulary 1 EACH PO SCH ×2 (08:30→13:50)
[2017-04-30] MEDS: POLYETHYLENE GLYCOL 3350 17 GM POWD.PACK PO SCH (10:30)
[2017-04-30] MEDS: ACETAMINOPHEN 500 MG TABLET PO PRN (11:01)
[2017-04-30] MEDS ORDERED: Non-Formulary 1 EACH PO PRN (12:11)
--- NOTE | 2017-04-30 12:19 | History and Physical Report ---
History of Present Illnes - History of Present Illness Reason for Visit: gait disturbance History of Present Illness: 66-year-old white female who fell at home. Patient was seen at [facility]. Patient was complaining of increasing shortness of breath dyspnea bedtime. Patient was having some orthopnea symptoms. Patient was felt to have an exacerbation of her congestive heart failure. Patient was subsequently admitted to the hospital for further care and evaluation. Patient was found to have large pleural effusion bilaterally. Patient did have a ultrasound-guided thoracentesis with removal of several liters of fluid. patient became weak and debilitated during her hospital stay and it was felt that she would benifet form further OT and PT. Patient was transferred to this institution for further rehab services. 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: Other (Obstructive sleep apnea) Gastrointestinal: GERD, Irritable bowel disease Heme/Onc: Anemia NOS, Cancer (Breast - s/p mastectomy) Psych: Anxiety Musculoskeletal: Other (pathologic hip fracture- osteoporosis) Rheumatologic: Rheumatoid arthritis Endocrine: 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's thyroiditis), Osteoporosis - Past Surgical History Past Surgical History: Appendectomy, Cholecystectomy, Cataract Removal, Hysterectomy, Mastectomy, Other (nephrectomy, placement of dual chamber pacemaker placement, ORIF hip fracture) - Past Social History Smoke: # pack years, Quit Alcohol: None Drugs: None Lives: With Family - Health Maintenance Health Maintenance: Pneumococcal Vaccine, Mammogram, Colonoscopy, DEXA Influenza Vaccine: Current for this Influenza Season Pneumonia Vaccine: Yes Resuscitation Status: Resusciation Status Resuscitation Status Do Not Resuscitate - Unable to Obtain History Unable to Obtain: No Review of Systems - Review of Systems Constitutional: negative: Fever, Chills, Sweats, Weakness Eyes: negative: pain ENT: negative: Ear Pain, Ear Discharge, Nose Pain, Nose Discharge, Nose Congestion, Throat Pain Respiratory: Cough (mild), Dry, Shortness of Breath, SOB with Excertion. negative: Hemoptysis, Pleuritic Pain, Sputum Cardiovascular: negative: Chest Pain, Palpitations, Orthopnea, Paroxysmal Noc. Dyspnea, Edema, Light Headedness Gastrointestinal: Constipation. negative: Nausea, Vomiting, Abdominal Pain, Diarrhea, Melena, Hematochezia Genitourinary: negative: Dysuria, Frequency, Incontinence Musculoskeletal: negative: Neck Pain, Shoulder Pain Skin: negative: Rash Neurological: negative: Weakness, Numbness - Medications/Allergies Allergies/Adverse Reactions: Allergies Allergy/AdvReac Type Severity Reaction Status Date / Time codeine Allergy Intermediate Hallucinati Verified 04/25/17 20:05 ons Penicillins Allergy Intermediate Hives Verified 04/25/17 20:05 Sulfa (Sulfonamide Allergy Intermediate Hives Verified 04/25/17 20:05 Antibiotics) Home Medications: Home Medications Alprazolam [Xanax] 0.5 mg PO TID PRN 04/29/17 Carvedilol [Coreg] 6.25 mg PO BID 04/29/17 Polyethylene Glycol 3350 [Miralax] 17 gm PO 1100 04/29/17 Current Inpatient Medications: Current Inpatient Medications Acetaminophen (Tylenol Extra Strength) 500 mg PO Q6 PRN PRN Reason: PAIN Last Admin: 04/30/17 11:01 Dose: 500 mg Alprazolam (Xanax) 0.5 mg PO TID PRN PRN Reason: Anxiety Amiodarone HCl (Pacerone) 200 mg PO DAILY [facility] Last Admin: 04/30/17 08:27 Dose: 200 mg Carvedilol (Coreg) 6.25 mg PO BID [facility] Last Admin: 04/30/17 08:27 Dose: 6.25 mg Dicyclomine HCl (Bentyl) 10 mg PO Q6 [facility] Last Admin: 04/30/17 11:02 Dose: 10 mg Docusate Sodium (Colace) 100 mg PO BID PRN PRN Reason: Constipation Isosorbide Mononitrate (Imdur) 60 mg PO HS [facility] Last Admin: 04/29/17 21:52 Dose: 60 mg Lisinopril (Prinivil) 2.5 mg PO QD [facility] Last Admin: 04/29/17 19:10 Dose: 2.5 mg Miscellaneous (Non Form) 1 each PO 714 [facility] Last Admin: 04/30/17 08:30 Dose: 1 each Miscellaneous (Non Form) 1 each PO D PRN PRN Reason: Constipation Ondansetron HCl (Zofran Odt) 4 mg PO Q4 PRN PRN Reason: Nausea / Vomiting Polyethylene Glycol (Miralax) 17 gm PO 1100 [facility] Last Admin: 04/30/17 10:30 Dose: 17 gm Potassium Chloride (Klor-Con M20) 20 meq PO DAILY [facility] Last Admin: 04/30/17 08:30 Dose: 20 meq Spironolactone (Aldactone) 12.5 mg PO DAILY [facility] Last Admin: 04/30/17 08:27 Dose: 12.5 mg Tamsulosin HCl (Flomax) 0.4 mg PO DAILY [facility] Last Admin: 04/30/17 08:29 Dose: 0.4 mg Exam - Exam Vital Signs: Vital Signs (72 hours) 04/29/17 04/29/17 04/29/17 13:15 21:00 22:00 Temperature 96.9 F L 97.2 F L Pulse Rate [ 69 69 71 Right] Respiratory 16 16 16 Rate Blood Pressure 123/62 [Left Arm] Blood Pressure 116/64 [Right Arm] O2 Sat by Pulse 97 95 Oximetry 04/30/17 09:45 Temperature Pulse Rate [ Right] Respiratory Rate Blood Pressure [Left Arm] Blood Pressure 99/50 [Right Arm] O2 Sat by Pulse Oximetry General: Alert (appears weak), Oriented to Person, Oriented to Place, Oriented to Time, Cooperative HEENT: Atraumatic, PERRLA, EOMI, Mouth Mucous membr. moist/Natalia, Nose Mucous membr. moist/Natalia Neck: Normal Range of Motion. No: Stridor, Rigidity Carotids: WNL Lungs: Normal air movement, Speaks full Sentences, Rales (in the bases bialt, R> L). No: Clear to auscultation, Wheezes, Rhonchi Cardiovascular: Regular rate (paced), Normal S1, Normal S2, No murmurs Abdomen: Normal bowel sounds, Soft, No tenderness, No hepatospenomegaly, No masses Integumentary: Normal, Natalia, Warm, Dry Extremities: No clubbing, No cyanosis, No edema, Normal pulses, No tenderness/ swelling Neurological: Normal gait, Normal speech, Strength Equal Bilat, Normal tone, Sensation intact, Cranial nerves 3-12 NL, Reflexes 2+ Psych/Mental Status: Mood NL, Appropriate Affect, Intact Judgment. No: Mental status NL (depressed some) Assessment/Plan - Assessment/Plan (1) Atrial fibrillation Status: Chronic Current Visit: Yes Qualifiers: Atrial fibrillation type: permanent Qualified Code(s): I48.2 - Chronic atrial fibrillation Assessment: S/P placement of biventricular pacer (2) Anemia Status: Chronic Current Visit: Yes Qualifiers: Anemia type: due to chronic kidney disease (3) Pleural effusion due to CHF (congestive heart failure) Status: Acute Current Visit: Yes Assessment: improved (4) GERD without esophagitis Status: Acute Current Visit: Yes (5) CHF (congestive heart failure) Status: Acute Current Visit: No Qualifiers: Heart failure chronicity: acute on chronic (6) Constipation Status: Chronic Current Visit: No Qualifiers: Constipation type: slow transit constipation Qualified Code(s): K59.01 - Slow transit constipation (7) Gait difficulty Status: Acute Current Visit: No (8) Malnourished Status: Chronic Current Visit: No Qualifiers: Malnutrition type: protein-calorie malnutrition Comment: dietary consult (9) Stress-induced cardiomyopathy Status: Chronic Current Visit: No Narrative Support Text: EF 30% (10) Hypothyroidism Status: Chronic Current Visit: No Qualifiers: (11) Obstructive sleep apnea Status: Chronic Current Visit: No Plan: on CPAP VTE Assessment - RISK FACTOR SCORE VTE RISK FACTOR SCORES: AGE OVER 60 YEARS, ANTICIPATED BED CONFINEMENT OR IMMOBILIZATION > 24 HOURS - RISK VTE MODERATE RISK: SCORE OF 2 (RISK PROXIMAL DVT 2-4%) PROPHYAXIS NEEDED (On Eliquis)
[2017-04-30] MEDS: ISOSORBIDE MONONITRATE 30 MG TAB.ER.24H PO SCH (20:07)
[2017-04-30] MEDS: LISINOPRIL 2.5 MG TABLET PO SCH (21:46)
[2017-05-01] MEDS: DICYCLOMINE HCL 20 MG TABLET PO SCH ×4 (01:08→18:19)
[2017-05-01] MEDS: Non-Formulary 1 EACH PO SCH ×2 (06:44→13:07)
[2017-05-01] MEDS: ACETAMINOPHEN 500 MG TABLET PO PRN ×2 (09:15→20:04)
[2017-05-01] MEDS: CARVEDILOL 6.25 MG TABLET PO SCH ×2 (09:16→20:02)
[2017-05-01] MEDS: AMIODARONE HCL 200 MG TABLET PO SCH (09:16)
[2017-05-01] MEDS: APIXABAN 2.5 MG TABLET PO SCH ×2 (09:16→20:02)
[2017-05-01] MEDS: TAMSULOSIN HCL 0.4 MG CAP.ER.24H PO SCH (09:20)
[2017-05-01] MEDS: SPIRONOLACTONE 25 MG TABLET PO SCH (09:21)
[2017-05-01] MEDS: POTASSIUM CHLORIDE 20 MEQ TABLET.ER PO SCH (09:21)
[2017-05-01] MEDS: POLYETHYLENE GLYCOL 3350 17 GM POWD.PACK PO SCH (11:25)
[2017-05-01] MEDS: LISINOPRIL 2.5 MG TABLET PO SCH (18:19)
[2017-05-01] MEDS: ISOSORBIDE MONONITRATE 30 MG TAB.ER.24H PO SCH (20:04)
[2017-05-01] MEDS: ALPRAZOLAM 0.5 MG TABLET PO PRN (20:04)
[2017-05-02] MEDS: Non-Formulary 1 EACH PO SCH ×3 (05:48→13:23)
[2017-05-02] MEDS: DICYCLOMINE HCL 20 MG TABLET PO SCH ×4 (05:48→18:04)
[2017-05-02 06:31] LABS: BASOPHILS % 1.2 (0.0-1.5); EOSINOPHILS % 0.8 % (0.0-6.8); MEAN CORPUSCULAR VOLUME 94.9 fl (80.0-100.0); MONOCYTES % 6.8 % (0.0-11.0); NEUTROPHILS # 3.1 # k/uL (1.4-7.7)
[2017-05-02 07:12] LABS: eGFR (African) > 60; eGFR (Non-African) > 60
[2017-05-02] MEDS: CARVEDILOL 6.25 MG TABLET PO SCH ×2 (08:59→19:19)
[2017-05-02] MEDS: SPIRONOLACTONE 25 MG TABLET PO SCH (08:59)
[2017-05-02] MEDS: POTASSIUM CHLORIDE 20 MEQ TABLET.ER PO SCH (09:00)
[2017-05-02] MEDS: AMIODARONE HCL 200 MG TABLET PO SCH (09:00)
[2017-05-02] MEDS: APIXABAN 2.5 MG TABLET PO SCH ×2 (09:00→19:18)
[2017-05-02] MEDS: TAMSULOSIN HCL 0.4 MG CAP.ER.24H PO SCH (09:02)
[2017-05-02] MEDS: POLYETHYLENE GLYCOL 3350 17 GM POWD.PACK PO SCH (13:22)
[2017-05-02] MEDS: LISINOPRIL 2.5 MG TABLET PO SCH (18:08)
[2017-05-02] MEDS: ISOSORBIDE MONONITRATE 30 MG TAB.ER.24H PO SCH (19:18)
[2017-05-02] MEDS: ALPRAZOLAM 0.5 MG TABLET PO PRN (20:54)
[2017-05-03] MEDS: DICYCLOMINE HCL 20 MG TABLET PO SCH ×4 (00:05→17:07)
[2017-05-03] MEDS: Non-Formulary 1 EACH PO SCH ×3 (05:44→13:12)
--- NOTE | 2017-05-03 08:39 | Inpatient Progress Note ---
Subjective - Required Recertification Statement I anticipate X number of days because-include discharge plan: 14 days - Review of Systems Events since last encounter: Patient states that she seems to be doing ok. Denies any chest pain or increasing SOB. Is having some constipation issues, wants to continue with current regimen for bowels. William any pain. Seems some depressed today. States that she wants to go home but knows that she con not yet. Pulmonary: Denies: Dyspnea, Cough Cardiovascular: Denies: Chest Pain, Palpitations Gastrointestinal: Constipation. Denies: Nausea, Vomiting, Abdominal Pain Genitourinary: Denies: Dysuria Objective - Exam Vitals and I&O: Vital Signs Temp 97.3 F L 05/02/17 21:00 Pulse 89 05/02/17 21:00 Resp 18 05/02/17 21:00 BP 130/66 05/02/17 21:00 Pulse Ox 93 05/02/17 21:00 Intake & Output 05/02/17 05/02/17 05/03/17 11:59 23:59 11:59 Intake Total 600 940 120 Balance 600 940 120 Weight 58.967 kg 58.876 kg Intake: Oral 600 940 120 Other: Voiding Method Toilet Toilet # Voids 2 4 2 General: Alert, Oriented to Person, Oriented to Place, Oriented to Time, Cooperative Neck: Supple Lungs: Clear to auscultation, Normal air movement. No: Wheezes, Rales, Rhonchi Abdomen: Normal bowel sounds, Soft, No tenderness Extremities: No clubbing, No cyanosis, Other (trace edema, weight is stable) Skin: Normal, [place], Warm Psych/Mental Status: Mental status NL. No: Appropriate Affect (depressed) - Results Results: Laboratory Results WBC 4.10 K/ul (4.00-12.00) 05/02/17 06:00 RBC 3.67 M/ul (3.90-5.20) L 05/02/17 06:00 Hgb 10.3 g/dL (12.0-16.0) L 05/02/17 06:00 Hct 34.8 % (34.5-46.5) 05/02/17 06:00 MCV 94.9 fl (80.0-100.0) 05/02/17 06:00 MCH 28.0 pg (28.0-34.0) 05/02/17 06:00 MCHC 29.5 g/dL (30.0-36.0) L 05/02/17 06:00 RDW 17.5 % (11.3-14.3) H 05/02/17 06:00 Plt Count 190 K/mm3 (130-400) 05/02/17 06:00 Neut % (Auto) 75.1 % (39.0-79.0) 05/02/17 06:00 Lymph % (Auto) 15.0 % (16.0-50.0) L 05/02/17 06:00 Power % (Auto) 6.8 % (0.0-11.0) 05/02/17 06:00 Eos % (Auto) 0.8 % (0.0-6.8) 05/02/17 06:00 Baso % (Auto) 1.2 (0.0-1.5) 05/02/17 06:00 Neut # (Auto) 3.1 # k/uL (1.4-7.7) 05/02/17 06:00 Lymph # (Auto) 0.6 # k/uL (0.6-4.0) 05/02/17 06:00 Power # (Auto) 0.3 # k/uL (0.0-0.9) 05/02/17 06:00 Eos # (Auto) 0.0 # k/uL (0.0-0.6) 05/02/17 06:00 Baso # (Auto) 0.0 # k/uL (0.0-0.5) 05/02/17 06:00 Reactive Lymphs % 1.1 % (0.0-5.0) 05/02/17 06:00 Reactive Lymphs # 0.0 # k/uL (0.0-0.8) 05/02/17 06:00 Sodium 138 mmol/L (136-145) 05/02/17 06:00 Potassium 4.0 mmol/L (3.5-5.1) 05/02/17 06:00 Chloride 96 mmol/L (98-107) L 05/02/17 06:00 Carbon Dioxide 32 mmol/L (22-30) H 05/02/17 06:00 BUN 22 mg/dL (7-17) H 05/02/17 06:00 Creatinine 1.20 mg/dL (0.52-1.04) H 05/02/17 06:00 Estimated Creat Clear 49 05/02/17 06:00 Est GFR ( Amer) > 60 (60-) 05/02/17 06:00 Est GFR (Non-Af Amer) > 60 (60-) 05/02/17 06:00 Glucose 84 mg/dL (74-106) 05/02/17 06:00 Calcium 8.3 mg/dL (8.4-10.2) L 05/02/17 06:00 Total Bilirubin 1.5 mg/dL (0.2-1.3) H 05/02/17 06:00 AST 29 U/L (15-46) 05/02/17 06:00 ALT 33 U/L (13-69) 05/02/17 06:00 Alkaline Phosphatase 150 U/L (38-126) H 05/02/17 06:00 NT-Pro-B Natriuret Pep 7436.2 pg/mL (15.0-125.0) H 05/02/17 06:00 Total Protein 5.9 g/dL (6.3-8.2) L 05/02/17 06:00 Albumin 3.0 g/dL (3.5-5.0) L 05/02/17 06:00 Assessment/Plan - Assessment/Plan (1) Gait difficulty Status: Acute Current Visit: No Assessment: will continue with present PT and OT, goal is for patient to return home. (2) CHF (congestive heart failure) Status: Acute Current Visit: No Qualifiers: Heart failure chronicity: acute on chronic Assessment: stable (3) Atrial fibrillation Status: Chronic Current Visit: Yes Qualifiers: Atrial fibrillation type: permanent Qualified Code(s): I48.2 - Chronic atrial fibrillation Assessment: on anticoagulation (4) Anemia Status: Chronic Current Visit: Yes Qualifiers: Anemia type: due to chronic kidney disease Assessment: stable, Hgb 10.3 (5) Pleural effusion due to CHF (congestive heart failure) Status: Acute Current Visit: Yes Assessment: stable with no evidence of reoccurrence (6) Constipation Status: Chronic Current Visit: No Qualifiers: Constipation type: slow transit constipation Qualified Code(s): K59.01 - Slow transit constipation Assessment: will continue with current laxatives (7) Malnourished Status: Chronic Current Visit: No Qualifiers: Malnutrition type: protein-calorie malnutrition Comment: dietary consult (8) Stress-induced cardiomyopathy Status: Chronic Current Visit: No Assessment: stable (9) Hypothyroidism Status: Chronic Current Visit: No Qualifiers: Assessment: continue home meds (10) Obstructive sleep apnea Status: Chronic Current Visit: No Assessment: stable, on CPAP
[2017-05-03] MEDS: SPIRONOLACTONE 25 MG TABLET PO SCH (08:56)
[2017-05-03] MEDS: APIXABAN 2.5 MG TABLET PO SCH ×2 (08:56→20:11)
[2017-05-03] MEDS: CARVEDILOL 6.25 MG TABLET PO SCH ×2 (08:56→20:12)
[2017-05-03] MEDS: POTASSIUM CHLORIDE 20 MEQ TABLET.ER PO SCH (08:57)
[2017-05-03] MEDS: AMIODARONE HCL 200 MG TABLET PO SCH (08:57)
[2017-05-03] MEDS: TAMSULOSIN HCL 0.4 MG CAP.ER.24H PO SCH (09:02)
[2017-05-03] MEDS: POLYETHYLENE GLYCOL 3350 17 GM POWD.PACK PO SCH (13:12)
[2017-05-03] MEDS: ACETAMINOPHEN 500 MG TABLET PO PRN (17:00)
[2017-05-03] MEDS: LISINOPRIL 2.5 MG TABLET PO SCH (17:01)
[2017-05-03] MEDS: ISOSORBIDE MONONITRATE 30 MG TAB.ER.24H PO SCH (20:12)
[2017-05-04] MEDS: ACETAMINOPHEN 500 MG TABLET PO PRN ×3 (00:10→20:40)
[2017-05-04] MEDS: DICYCLOMINE HCL 20 MG TABLET PO SCH ×5 (00:11→23:27)
[2017-05-04] MEDS: Non-Formulary 1 EACH PO SCH ×3 (07:13→13:23)
[2017-05-04] MEDS: SPIRONOLACTONE 25 MG TABLET PO SCH (08:42)
[2017-05-04] MEDS: CARVEDILOL 6.25 MG TABLET PO SCH ×2 (08:43→20:37)
[2017-05-04] MEDS: APIXABAN 2.5 MG TABLET PO SCH ×2 (08:43→20:37)
[2017-05-04] MEDS: TAMSULOSIN HCL 0.4 MG CAP.ER.24H PO SCH (08:43)
[2017-05-04] MEDS: POTASSIUM CHLORIDE 20 MEQ TABLET.ER PO SCH (08:43)
[2017-05-04] MEDS: AMIODARONE HCL 200 MG TABLET PO SCH (08:44)
[2017-05-04] MEDS: POLYETHYLENE GLYCOL 3350 17 GM POWD.PACK PO SCH (10:01)
[2017-05-04] MEDS: LISINOPRIL 2.5 MG TABLET PO SCH (19:13)
[2017-05-04] MEDS: ISOSORBIDE MONONITRATE 30 MG TAB.ER.24H PO SCH (20:37)
[2017-05-05] MEDS: DICYCLOMINE HCL 20 MG TABLET PO SCH ×3 (05:52→18:27)
[2017-05-05] MEDS: Non-Formulary 1 EACH PO SCH ×3 (06:01→14:14)
[2017-05-05] MEDS: SPIRONOLACTONE 25 MG TABLET PO SCH (09:35)
[2017-05-05] MEDS: CARVEDILOL 6.25 MG TABLET PO SCH ×2 (09:36→20:17)
[2017-05-05] MEDS: APIXABAN 2.5 MG TABLET PO SCH ×2 (09:36→20:17)
[2017-05-05] MEDS: POTASSIUM CHLORIDE 20 MEQ TABLET.ER PO SCH (09:36)
[2017-05-05] MEDS: TAMSULOSIN HCL 0.4 MG CAP.ER.24H PO SCH (09:36)
[2017-05-05] MEDS: AMIODARONE HCL 200 MG TABLET PO SCH (09:37)
[2017-05-05] MEDS: POLYETHYLENE GLYCOL 3350 17 GM POWD.PACK PO SCH (11:10)
[2017-05-05] MEDS: ACETAMINOPHEN 500 MG TABLET PO PRN ×2 (16:00→20:17)
[2017-05-05] MEDS: LISINOPRIL 2.5 MG TABLET PO SCH (18:25)
[2017-05-05] MEDS: ISOSORBIDE MONONITRATE 30 MG TAB.ER.24H PO SCH (20:17)
[2017-05-05] MEDS: DOCUSATE SODIUM 100 MG CAPSULE PO PRN (20:17)
[2017-05-06] MEDS: DICYCLOMINE HCL 20 MG TABLET PO SCH ×4 (00:15→18:19)
[2017-05-06] MEDS: Non-Formulary 1 EACH PO SCH ×3 (06:23→14:20)
[2017-05-06] MEDS: CARVEDILOL 6.25 MG TABLET PO SCH ×2 (08:37→19:37)
[2017-05-06] MEDS: SPIRONOLACTONE 25 MG TABLET PO SCH (08:38)
[2017-05-06] MEDS: APIXABAN 2.5 MG TABLET PO SCH ×2 (08:38→19:36)
[2017-05-06] MEDS: POTASSIUM CHLORIDE 20 MEQ TABLET.ER PO SCH (08:39)
[2017-05-06] MEDS: TAMSULOSIN HCL 0.4 MG CAP.ER.24H PO SCH (08:39)
[2017-05-06] MEDS: AMIODARONE HCL 200 MG TABLET PO SCH (08:40)
[2017-05-06] MEDS: POLYETHYLENE GLYCOL 3350 17 GM POWD.PACK PO SCH (10:31)
[2017-05-06] MEDS: ACETAMINOPHEN 500 MG TABLET PO PRN (14:52)
[2017-05-06] MEDS: LISINOPRIL 2.5 MG TABLET PO SCH (18:25)
[2017-05-06] MEDS: ISOSORBIDE MONONITRATE 30 MG TAB.ER.24H PO SCH (19:37)
[2017-05-07] MEDS: DICYCLOMINE HCL 20 MG TABLET PO SCH ×4 (00:37→17:38)
[2017-05-07] MEDS: Non-Formulary 1 EACH PO SCH ×5 (06:02→20:10)
[2017-05-07] MEDS: SPIRONOLACTONE 25 MG TABLET PO SCH (08:43)
[2017-05-07] MEDS: CARVEDILOL 6.25 MG TABLET PO SCH ×2 (08:43→20:10)
[2017-05-07] MEDS: APIXABAN 2.5 MG TABLET PO SCH ×2 (08:44→20:10)
[2017-05-07] MEDS: POTASSIUM CHLORIDE 20 MEQ TABLET.ER PO SCH (08:45)
[2017-05-07] MEDS: AMIODARONE HCL 200 MG TABLET PO SCH (08:45)
[2017-05-07] MEDS: TAMSULOSIN HCL 0.4 MG CAP.ER.24H PO SCH (08:47)
[2017-05-07] MEDS: ACETAMINOPHEN 500 MG TABLET PO PRN ×2 (09:30→20:10)
[2017-05-07] MEDS: POLYETHYLENE GLYCOL 3350 17 GM POWD.PACK PO SCH (10:58)
[2017-05-07] MEDS: LISINOPRIL 2.5 MG TABLET PO SCH (17:35)
[2017-05-07] MEDS: ISOSORBIDE MONONITRATE 30 MG TAB.ER.24H PO SCH (20:10)
[2017-05-08] MEDS: DICYCLOMINE HCL 20 MG TABLET PO SCH ×5 (00:03→23:04)
[2017-05-08] MEDS: Non-Formulary 1 EACH PO SCH ×4 (06:05→20:19)
[2017-05-08] MEDS: SPIRONOLACTONE 25 MG TABLET PO SCH (09:23)
[2017-05-08] MEDS: APIXABAN 2.5 MG TABLET PO SCH ×2 (09:24→20:18)
[2017-05-08] MEDS: CARVEDILOL 6.25 MG TABLET PO SCH ×2 (09:24→20:18)
[2017-05-08] MEDS: AMIODARONE HCL 200 MG TABLET PO SCH (09:25)
[2017-05-08] MEDS: POTASSIUM CHLORIDE 20 MEQ TABLET.ER PO SCH (09:25)
[2017-05-08] MEDS: TAMSULOSIN HCL 0.4 MG CAP.ER.24H PO SCH (09:27)
[2017-05-08] MEDS: POLYETHYLENE GLYCOL 3350 17 GM POWD.PACK PO SCH (12:44)
[2017-05-08] MEDS: LISINOPRIL 2.5 MG TABLET PO SCH (18:18)
[2017-05-08] MEDS: ISOSORBIDE MONONITRATE 30 MG TAB.ER.24H PO SCH (20:18)
[2017-05-08] MEDS: ACETAMINOPHEN 500 MG TABLET PO PRN (23:03)
[2017-05-09] MEDS: DICYCLOMINE HCL 20 MG TABLET PO SCH ×3 (05:59→17:08)
[2017-05-09] MEDS: Non-Formulary 1 EACH PO SCH ×5 (06:02→20:23)
[2017-05-09] MEDS: POTASSIUM CHLORIDE 20 MEQ TABLET.ER PO SCH (09:06)
[2017-05-09] MEDS: CARVEDILOL 6.25 MG TABLET PO SCH ×2 (09:06→20:22)
[2017-05-09] MEDS: SPIRONOLACTONE 25 MG TABLET PO SCH (09:06)
[2017-05-09] MEDS: AMIODARONE HCL 200 MG TABLET PO SCH (09:06)
[2017-05-09] MEDS: APIXABAN 2.5 MG TABLET PO SCH ×2 (09:07→20:22)
[2017-05-09] MEDS: TAMSULOSIN HCL 0.4 MG CAP.ER.24H PO SCH (09:09)
[2017-05-09] MEDS ORDERED: ONDANSETRON HCL 4 MG TAB.RAPDIS PO PRN (09:20)
[2017-05-09] MEDS: POLYETHYLENE GLYCOL 3350 17 GM POWD.PACK PO SCH (10:38)
[2017-05-09] MEDS: ISOSORBIDE MONONITRATE 30 MG TAB.ER.24H PO SCH (20:22)
[2017-05-09] MEDS: LISINOPRIL 2.5 MG TABLET PO SCH (20:22)
[2017-05-10] MEDS: ACETAMINOPHEN 500 MG TABLET PO PRN ×2 (00:14→18:05)
[2017-05-10] MEDS: DICYCLOMINE HCL 20 MG TABLET PO SCH ×4 (00:14→17:54)
[2017-05-10] MEDS: Non-Formulary 1 EACH PO SCH ×4 (06:32→20:59)
[2017-05-10] MEDS: POTASSIUM CHLORIDE 20 MEQ TABLET.ER PO SCH (08:44)
[2017-05-10] MEDS: AMIODARONE HCL 200 MG TABLET PO SCH (08:44)
[2017-05-10] MEDS: APIXABAN 2.5 MG TABLET PO SCH ×2 (08:44→21:00)
[2017-05-10] MEDS: TAMSULOSIN HCL 0.4 MG CAP.ER.24H PO SCH (08:44)
[2017-05-10] MEDS: CARVEDILOL 6.25 MG TABLET PO SCH ×2 (08:44→21:00)
[2017-05-10] MEDS: SPIRONOLACTONE 25 MG TABLET PO SCH (08:45)
[2017-05-10] MEDS: POLYETHYLENE GLYCOL 3350 17 GM POWD.PACK PO SCH (10:42)
[2017-05-10 11:09] LABS: BASOPHILS % 0.7 (0.0-1.5); EOSINOPHILS % 0.6 % (0.0-6.8); MEAN CORPUSCULAR HEMOGLOBIN 28.5 pg (28.0-34.0); MEAN CORPUSCULAR VOLUME 97.5 fl (80.0-100.0); MONOCYTES % 6.7 % (0.0-11.0); NEUTROPHILS # 4.1 # k/uL (1.4-7.7)
[2017-05-10 11:09] LABS: eGFR (African) > 60; eGFR (Non-African) 43
--- NOTE | 2017-05-10 18:35 | Diagnostic Imaging Report ---
[facility] [address] [address] [facility] [address] [place] [address]. [id number] Report Submission Date: May 10, 2017 11:17:59 AM PAIL TESTER Patient Study Name: OVIDIO WANG Date: May 10, 2017 10:47:35 AM PAIL TESTER Modality Type: DX Gender: F Description: CHEST : 46 Institution: [facility] Physician: [facility] Examination: PA and lateral chest. History: Evaluate lung [place]. CXR, WORSENING DYSPNEA, PT STATES SHE HAS HAD DYSPNEA X30 YEARS, FORMER SMOKER, QUIT 3 YEARS AGO (Hx) Comparison exam: 25 April 2017 Findings: PA lateral chest demonstrates a hypoventilated inspiratory effort. Prominent cardiac silhouette. Bibasilar blunting of the costophrenic margins with large retrocardiac consolidation. Aortic arch stent. Right sided cardiac pacemaker. Articular degenerative changes. Impression: Persistent bibasilar infiltrate/effusions - continued congestive failure pattern. Electronically signed on May 10, 2017 11:17:59 AM PAIL TESTER by: Luis Enrique NEWMAN
[2017-05-10] MEDS: ISOSORBIDE MONONITRATE 30 MG TAB.ER.24H PO SCH (21:00)
[2017-05-11] MEDS: LISINOPRIL 2.5 MG TABLET PO SCH ×2 (06:43→18:51)
[2017-05-11] MEDS: DICYCLOMINE HCL 20 MG TABLET PO SCH ×4 (06:44→18:51)
[2017-05-11] MEDS: Non-Formulary 1 EACH PO SCH ×4 (06:46→20:02)
[2017-05-11] MEDS: ACETAMINOPHEN 500 MG TABLET PO PRN (09:51)
[2017-05-11] MEDS: SPIRONOLACTONE 25 MG TABLET PO SCH (09:52)
[2017-05-11] MEDS: CARVEDILOL 6.25 MG TABLET PO SCH ×2 (09:53→20:02)
[2017-05-11] MEDS: APIXABAN 2.5 MG TABLET PO SCH ×2 (09:54→20:02)
[2017-05-11] MEDS: POTASSIUM CHLORIDE 20 MEQ TABLET.ER PO SCH (09:54)
[2017-05-11] MEDS: TAMSULOSIN HCL 0.4 MG CAP.ER.24H PO SCH (09:54)
[2017-05-11] MEDS: AMIODARONE HCL 200 MG TABLET PO SCH (09:55)
--- NOTE | 2017-05-11 10:48 | Inpatient Progress Note ---
Subjective - Required Recertification Statement I anticipate X number of days because-include discharge plan: 5 days - Review of Systems Events since last encounter: Patient has had some difficulties with ambulation since her fall on Monday but seems to be doing some better. Patient denies any increase weight, BROWN or chest pain. Objective - Exam Vitals and I&O: Vital Signs Temp 98.1 F 05/11/17 09:00 Pulse 81 05/11/17 09:00 Resp 20 05/11/17 09:00 BP 109/60 05/11/17 09:00 Pulse Ox 98 05/11/17 09:00 Intake & Output 05/10/17 05/10/17 05/11/17 11:59 23:59 11:59 Intake Total 947 972 1066 Balance 918 413 3217 Weight 52.254 kg 53.2 kg Intake: Oral 966 213 4785 Other: Voiding Method Toilet Toilet # Voids 5 General: Alert, Oriented to Person, Oriented to Place, Oriented to Time, Cooperative Neck: Supple, No JVD Lungs: Clear to auscultation, Normal air movement, Speaks full Sentences. No: Wheezes, Rales, Rhonchi Cardiovascular: Normal S1, Normal S2, Irregularly Irregular Abdomen: Normal bowel sounds, Soft Neurological: Normal speech, Strength Equal Bilat Psych/Mental Status: Mental status NL, Mood NL - Results Results: Laboratory Results WBC 5.00 K/ul (4.00-12.00) 05/10/17 Unknown RBC 3.49 M/ul (3.90-5.20) L 05/10/17 Unknown Hgb 9.9 g/dL (12.0-16.0) L 05/10/17 Unknown Hct 34.0 % (34.5-46.5) L 05/10/17 Unknown MCV 97.5 fl (80.0-100.0) 05/10/17 Unknown MCH 28.5 pg (28.0-34.0) 05/10/17 Unknown MCHC 29.2 g/dL (30.0-36.0) L 05/10/17 Unknown RDW 18.7 % (11.3-14.3) H 05/10/17 Unknown Plt Count 194 K/mm3 (130-400) 05/10/17 Unknown Neut % (Auto) 80.9 % (39.0-79.0) H 05/10/17 Unknown Lymph % (Auto) 9.6 % (16.0-50.0) L 05/10/17 Unknown [place] % (Auto) 6.7 % (0.0-11.0) 05/10/17 Unknown Eos % (Auto) 0.6 % (0.0-6.8) 05/10/17 Unknown Baso % (Auto) 0.7 (0.0-1.5) 05/10/17 Unknown Neut # (Auto) 4.1 # k/uL (1.4-7.7) 05/10/17 Unknown Lymph # (Auto) 0.5 # k/uL (0.6-4.0) L 05/10/17 Unknown [place] # (Auto) 0.3 # k/uL (0.0-0.9) 05/10/17 Unknown Eos # (Auto) 0.0 # k/uL (0.0-0.6) 05/10/17 Unknown Baso # (Auto) 0.0 # k/uL (0.0-0.5) 05/10/17 Unknown Reactive Lymphs % 1.4 % (0.0-5.0) 05/10/17 Unknown Reactive Lymphs # 0.1 # k/uL (0.0-0.8) 05/10/17 Unknown Sodium 137 mmol/L (136-145) 05/10/17 10:45 Potassium 4.5 mmol/L (3.5-5.1) 05/10/17 10:45 Chloride 96 mmol/L (98-107) L 05/10/17 10:45 Carbon Dioxide 26 mmol/L (22-30) 05/10/17 10:45 BUN 21 mg/dL (7-17) H 05/10/17 10:45 Creatinine 1.30 mg/dL (0.52-1.04) H 05/10/17 10:45 Estimated Creat Clear 40 05/10/17 10:45 Est GFR ( Amer) > 60 (60-) 05/10/17 10:45 Est GFR (Non-Af Amer) 43 (60-) L 05/10/17 10:45 Glucose 97 mg/dL (74-106) 05/10/17 10:45 Calcium 8.5 mg/dL (8.4-10.2) 05/10/17 10:45 Total Bilirubin 1.7 mg/dL (0.2-1.3) H 05/10/17 10:45 AST 44 U/L (15-46) 05/10/17 10:45 ALT 48 U/L (13-69) 05/10/17 10:45 Alkaline Phosphatase 159 U/L (38-126) H 05/10/17 10:45 NT-Pro-B Natriuret Pep 5581.5 pg/mL (15.0-125.0) H 05/10/17 10:45 Total Protein 6.7 g/dL (6.3-8.2) 05/10/17 10:45 Albumin 3.4 g/dL (3.5-5.0) L 05/10/17 10:45 Assessment/Plan - Assessment/Plan (1) Gait difficulty Status: Acute Current Visit: No Assessment: improved some with PT and OT (2) CHF (congestive heart failure) Status: Acute Current Visit: No Qualifiers: Heart failure chronicity: acute on chronic Assessment: Appears stable, chest x-ray yesterday stable, BNP is improved some. Patient is still requiring oxygen at 2 liters continuously 24 hours/ day (3) Atrial fibrillation Status: Chronic Current Visit: Yes Qualifiers: Atrial fibrillation type: permanent Qualified Code(s): I48.2 - Chronic atrial fibrillation Assessment: stable on anticogulation therapy (4) Anemia Status: Chronic Current Visit: Yes Qualifiers: Anemia type: due to chronic kidney disease Assessment: stable Hgb 9.9 yesterday (5) Constipation Status: Chronic Current Visit: No Qualifiers: Constipation type: slow transit constipation Qualified Code(s): K59.01 - Slow transit constipation (6) Malnourished Status: Chronic Current Visit: No Qualifiers: Malnutrition type: protein-calorie malnutrition Comment: dietary consult Assessment: appetite has been fair, is taking supplements at this time (7) Stress-induced cardiomyopathy Status: Chronic Current Visit: No Assessment: stable (8) Obstructive sleep apnea Status: Chronic Current Visit: No Assessment: using Cpap
[2017-05-11] MEDS: POLYETHYLENE GLYCOL 3350 17 GM POWD.PACK PO SCH ×2 (12:22→12:24)
[2017-05-11] MEDS: ISOSORBIDE MONONITRATE 30 MG TAB.ER.24H PO SCH (20:03)
[2017-05-12] MEDS: DICYCLOMINE HCL 20 MG TABLET PO SCH ×4 (00:33→18:21)
[2017-05-12] MEDS: ACETAMINOPHEN 500 MG TABLET PO PRN ×3 (02:16→21:22)
[2017-05-12] MEDS: Non-Formulary 1 EACH PO SCH ×4 (05:49→20:00)
[2017-05-12] MEDS: SPIRONOLACTONE 25 MG TABLET PO SCH (09:42)
[2017-05-12] MEDS: CARVEDILOL 6.25 MG TABLET PO SCH ×2 (09:43→21:23)
[2017-05-12] MEDS: APIXABAN 2.5 MG TABLET PO SCH ×2 (09:43→21:23)
[2017-05-12] MEDS: AMIODARONE HCL 200 MG TABLET PO SCH (09:43)
[2017-05-12] MEDS: TAMSULOSIN HCL 0.4 MG CAP.ER.24H PO SCH (09:43)
[2017-05-12] MEDS: POTASSIUM CHLORIDE 20 MEQ TABLET.ER PO SCH (09:43)
[2017-05-12] MEDS: POLYETHYLENE GLYCOL 3350 17 GM POWD.PACK PO SCH (11:39)
[2017-05-12] MEDS: LISINOPRIL 2.5 MG TABLET PO SCH (18:22)
[2017-05-12] MEDS: ISOSORBIDE MONONITRATE 30 MG TAB.ER.24H PO SCH (21:23)
[2017-05-13] MEDS: DICYCLOMINE HCL 20 MG TABLET PO SCH ×4 (01:30→18:24)
[2017-05-13] MEDS: Non-Formulary 1 EACH PO SCH ×4 (05:45→20:53)
[2017-05-13] MEDS: DOCUSATE SODIUM 100 MG CAPSULE PO PRN (09:50)
[2017-05-13] MEDS: APIXABAN 2.5 MG TABLET PO SCH ×2 (09:51→20:53)
[2017-05-13] MEDS: CARVEDILOL 6.25 MG TABLET PO SCH ×2 (09:51→20:53)
[2017-05-13] MEDS: SPIRONOLACTONE 25 MG TABLET PO SCH (09:52)
[2017-05-13] MEDS: AMIODARONE HCL 200 MG TABLET PO SCH (09:53)
[2017-05-13] MEDS: TAMSULOSIN HCL 0.4 MG CAP.ER.24H PO SCH (09:53)
[2017-05-13] MEDS: POTASSIUM CHLORIDE 20 MEQ TABLET.ER PO SCH (09:53)
[2017-05-13] MEDS: POLYETHYLENE GLYCOL 3350 17 GM POWD.PACK PO SCH (13:53)
[2017-05-13] MEDS: ACETAMINOPHEN 500 MG TABLET PO PRN (15:15)
[2017-05-13] MEDS: LISINOPRIL 2.5 MG TABLET PO SCH (18:25)
[2017-05-13] MEDS: ISOSORBIDE MONONITRATE 30 MG TAB.ER.24H PO SCH (20:53)
[2017-05-13] MEDS: ALPRAZOLAM 0.5 MG TABLET PO PRN (22:27)
[2017-05-14] MEDS: DICYCLOMINE HCL 20 MG TABLET PO SCH ×4 (00:19→17:19)
[2017-05-14] MEDS: Non-Formulary 1 EACH PO SCH ×4 (06:05→21:26)
[2017-05-14] MEDS: SPIRONOLACTONE 25 MG TABLET PO SCH (08:42)
[2017-05-14] MEDS: CARVEDILOL 6.25 MG TABLET PO SCH ×2 (08:43→21:25)
[2017-05-14] MEDS: AMIODARONE HCL 200 MG TABLET PO SCH (08:43)
[2017-05-14] MEDS: TAMSULOSIN HCL 0.4 MG CAP.ER.24H PO SCH (08:43)
[2017-05-14] MEDS: APIXABAN 2.5 MG TABLET PO SCH ×2 (08:43→21:25)
[2017-05-14] MEDS: POTASSIUM CHLORIDE 20 MEQ TABLET.ER PO SCH (08:45)
[2017-05-14] MEDS: POLYETHYLENE GLYCOL 3350 17 GM POWD.PACK PO SCH (11:04)
[2017-05-14] MEDS: ACETAMINOPHEN 500 MG TABLET PO PRN (14:06)
[2017-05-14] MEDS: ISOSORBIDE MONONITRATE 30 MG TAB.ER.24H PO SCH (21:25)
[2017-05-14] MEDS: LISINOPRIL 2.5 MG TABLET PO SCH (21:26)
[2017-05-15] MEDS: DICYCLOMINE HCL 20 MG TABLET PO SCH ×4 (00:31→12:41)
[2017-05-15] MEDS: Non-Formulary 1 EACH PO SCH ×2 (06:07→09:26)
--- NOTE | 2017-05-15 08:36 | Discharge Summary ---
Discharge Summary - Discharge Sumary History of Present Illness: 66-year-old white female who fell at home. Patient was seen at [facility]. Patient was complaining of increasing shortness of breath dyspnea bedtime. Patient was having some orthopnea symptoms. Patient was felt to have an exacerbation of her congestive heart failure. Patient was subsequently admitted to the hospital for further care and evaluation. Patient was found to have large pleural effusion bilaterally. Patient did have a ultrasound-guided thoracentesis with removal of several liters of fluid. patient became weak and debilitated during her hospital stay and it was felt that she would benifet form further OT and PT. Patient was transferred to this institution for further rehab services. Home Medications: Ambulatory Orders Medication Instructions Recorded Apixaban [Eliquis] 5 mg PO BID 10/18/13 Isosorbide Mononitrate [Isosorbide 60 mg PO HS 10/18/13 Mononitrate ER] Esomeprazole Magnesium [Nexium] 40 mg PO DAILY 01/29/15 Bethanechol Chloride 25 mg PO 09/14/16 Amiodarone HCl [Pacerone] 200 mg PO DAILY 11/21/16 Dicyclomine HCl 10 mg PO QID 11/21/16 Ondansetron HCl Rapdis [Zofran ODT] 4 mg PO Q4 PRN 11/21/16 Spironolactone [Aldactone] 12.5 mg PO DAILY 11/21/16 Tamsulosin HCl [Flomax] 0.4 mg PO DAILY 11/21/16 Acetaminophen [Tylenol Extra 500 mg PO Q6 PRN 12/09/16 Strength] Docusate Sodium [Colace] 100 mg PO BID PRN 12/09/16 Lisinopril [Prinivil] 2.5 mg PO QD 04/25/17 Potassium Chloride [Klor-Con M20] 20 meq PO DAILY 04/25/17 Torsemide [Demadex] 40 mg PO 04/25/17 Alprazolam [Xanax] 0.5 mg PO TID PRN 04/29/17 Carvedilol [Coreg] 6.25 mg PO BID 04/29/17 Polyethylene Glycol 3350 [Miralax] 17 gm PO 1100 04/29/17 Consultations this Visit: None Procedures this Visit: None Allergies/Adverse Reactions: Allergies Allergy/AdvReac Type Severity Reaction Status Date / Time codeine Allergy Intermediate Hallucinati Verified 04/25/17 20:05 ons Penicillins Allergy Intermediate Hives Verified 04/25/17 20:05 Sulfa (Sulfonamide Allergy Intermediate Hives Verified 04/25/17 20:05 Antibiotics) Discharge Summary: Patient was started on physical and occupational therapy. Patient did progress fairly well with that. Patient continues to be weak during her course of skills day. Patient did have a fall when she got up and try to ambulate without any assistance. Patient did not have any specific pain associated with it other than generalized contusions and mild ecchymosis. Patient congestive heart failure remain stable. Patient weight remain stable. Anemia remains stable with hemoglobin of 9.9. Chronic kidney disease was stable with a creatinine 1.3 be one of 21. Congestive heart failure was stable last BMP was 5580. Patient did use her CPAP machine for obstructive sleep apnea. Patient was taking supplements because of her malnourishment related to her chronic illnesses. At the time of dismissal patient was walking with the aid of a walker. It was felt that she could be managed at home with home health services. Patient was subsequently discharged in stable condition. Hospital Course: stay coded - Final Diagnosis (1) Gait difficulty Problems: improved (2) CHF (congestive heart failure) Problems: stable (3) Atrial fibrillation Problems: stable (4) Anemia Problems: stable
[2017-05-15] MEDS: SPIRONOLACTONE 25 MG TABLET PO SCH (09:25)
[2017-05-15] MEDS: AMIODARONE HCL 200 MG TABLET PO SCH (09:26)
[2017-05-15] MEDS: POTASSIUM CHLORIDE 20 MEQ TABLET.ER PO SCH (09:26)
[2017-05-15] MEDS: CARVEDILOL 6.25 MG TABLET PO SCH (09:26)
[2017-05-15] MEDS: APIXABAN 2.5 MG TABLET PO SCH (09:26)
[2017-05-15] MEDS: TAMSULOSIN HCL 0.4 MG CAP.ER.24H PO SCH (09:29)
[2017-05-15 10:48] VITALS: BP 104/70
[2017-05-15] MEDS: POLYETHYLENE GLYCOL 3350 17 GM POWD.PACK PO SCH (12:41)
== END 2017-05-15 12:45 | disposition home health service (06) | DRG 292 ==
LOC: SOUTH 13:00
PROVIDERS: ADMIT Family Medicine; ATTEND Family Medicine
DX: I50.9 Heart failure, unspecified (principal); R26.9 Unspecified abnormalities of gait and mobility; I30.0 Acute nonspecific idiopathic pericarditis; I48.2 Chronic atrial fibrillation; Z95.810 Presence of automatic (implantable) cardiac defibrillator; Z79.01 Long term (current) use of anticoagulants; N18.9 Chronic kidney disease, unspecified; D63.1 Anemia in chronic kidney disease; K21.9 Gastro-esophageal reflux disease without esophagitis; K59.01 Slow transit constipation; E46 Unspecified protein-calorie malnutrition; I51.81 Takotsubo syndrome; E03.9 Hypothyroidism, unspecified; G47.33 Obstructive sleep apnea (adult) (pediatric); Z99.89 Dependence on other enabling machines and devices
CPT/HCPCS: 36415; 71046; 80053; 83880; 85025; A9270; A9270-GY

== ENCOUNTER 2017-06-15 10:19 | Outpatient (CLI) | payer MEDICARE, OTHER ==
[2017-06-15 10:47] LABS: eGFR (African) 32; eGFR (Non-African) 26
== END 2017-06-15 10:20 ==
LOC: LAB 10:19
PROVIDERS: ATTEND Internal Medicine Cardiovascular Disease
DX: I50.40 Unspecified combined systolic (congestive) and diastolic (congestive) heart failure (principal); I11.0 Hypertensive heart disease with heart failure; I48.91 Unspecified atrial fibrillation; M62.81 Muscle weakness (generalized); I50.9 Heart failure, unspecified; I25.10 Atherosclerotic heart disease of native coronary artery without angina pectoris
CPT/HCPCS: 80048

== ENCOUNTER 2017-06-19 08:13 | Outpatient (CLI) | payer MEDICARE, OTHER ==
[2017-06-19 09:00] LABS: eGFR (African) > 60; eGFR (Non-African) > 60
== END 2017-06-19 08:14 ==
LOC: LAB 08:13
PROVIDERS: ATTEND Family Medicine
DX: N17.9 Acute kidney failure, unspecified (principal)
CPT/HCPCS: 36415; 80048

== ENCOUNTER 2017-06-28 10:32 | Emergency (ER) | payer MEDICARE, OTHER ==
[2017-06-28] MEDS ORDERED: KETOROLAC TROMETHAMINE 60 MG/2 ML VIAL IM ONE (10:35)
[2017-06-28] MEDS ORDERED: 0.9 % SODIUM CHLORIDE 1,000 ML IV ONE (10:37)
[2017-06-28 10:40] VITALS: BP 148/82
--- NOTE | 2017-06-28 10:41 | ED Physician Documentation ---
Fall - HISTORIAN Historian: patient, spouse - HPI Stated Complaint: Fall Chief Complaint: Fall Onset: just prior to arrival Where: home Context: tripped, lost balance r: mild Associated Symptoms:: no loss of consciousness Location of Pain/Injury: head, hip (left ) Injury to Right Extremity: none Injury to Left Extremity: hip Further Comments: yes (she reports she fell trying to answer the door. She did hit her head on the wall (denies any LOC) she also hit directly on her left hip and states that she does have pain in her left hip area. No other complaints.) - ROS CONST: no problems MS/SKIN/LYMPH: weakness EYES/ENT: none CVS/RESP: none GI/: denies: problems urinating, nausea, vomiting - PAST HX Past History: A-Fib, other (Breast cancer , hypertension, hyperlipidemia ) Immunizations: UTD Allergies/Adverse Reactions: Allergies Allergy/AdvReac Type Severity Reaction Status Date / Time codeine Allergy Intermediate Hallucinati Verified 06/28/17 10:41 ons Penicillins Allergy Intermediate Hives Verified 06/28/17 10:41 Sulfa (Sulfonamide Allergy Intermediate Hives Verified 06/28/17 10:41 Antibiotics) Home Medications: Ambulatory Orders Medication Instructions Recorded Apixaban [Eliquis] 5 mg PO BID 10/18/13 Isosorbide Mononitrate [Isosorbide 60 mg PO HS 10/18/13 Mononitrate ER] Amiodarone HCl [Pacerone] 200 mg PO DAILY 11/21/16 Spironolactone [Aldactone] 12.5 mg PO DAILY 11/21/16 Tamsulosin HCl [Flomax] 0.4 mg PO DAILY 11/21/16 Docusate Sodium [Colace] 100 mg PO BID PRN 12/09/16 Lisinopril [Prinivil] 2.5 mg PO QD 04/25/17 Torsemide [Demadex] 40 mg PO ,04/25/17 Alprazolam [Xanax] 0.5 mg PO TID PRN 04/29/17 Carvedilol [Coreg] 6.25 mg PO BID 04/29/17 Omeprazole [Omeprazole] 40 mg PO DAILY 06/28/17 - SOCIAL HX Smoking History: non-smoker Alcohol Use: none Drug Use: none - FAMILY HX Family History: none - VITAL SIGNS Vital Signs: Vital Signs Temp Pulse Resp BP Pulse Ox 97 H 17 148/82 97 06/28/17 10:32 06/28/17 10:32 06/28/17 10:32 06/28/17 10:32 - REVIEWED ASSESSMENTS Nursing Assessment Reviewed: Yes Vitals Reviewed: Yes Progress - Progress Progress: 1130: resting in bed with and daughter. Denies any pain DG 1150: discussed results and she is pain free currently DG 1200: she is requesting pain medication before the ride home DG ED Results Lab/Radiology - Radiology Radiology Impressions: Examination: CT head without contrast History: CT HEAD W/O, FALL TODAY WITH PAIN AND LEFT SIDED FRONTAL CONTUSION (Hx ) Comparison exam: None available for direct review. Technique: Noncontrast head CT protocol. Findings: Ventricles and sulci are prominent. Cerebrocerebellar parenchyma demonstrates periventricular low attenuation consistent with small vessel disease. No evidence for parenchymal hemorrhage. No evidence for mass or mass effect. No midline shift. No extra axial fluid collections. Partial visualization of the paranasal sinuses, mastoid air cells, orbits, skull and scalp without gross irregularity. Impression: Age related changes. No acute parenchymal process. No hemorrhage. Electronically signed on Jun 28, 2017 11:30:21 AM CDT by: Luis Enrique Bernal Examination: Plain film left hip History: LEFT HIP & PELVIS, LEFT SIDED HIP PAIN AFTER FALL TODAY (Hx) Comparison exams: None provided Findings: 2 views of the left hip demonstrates osteopenia. No evidence for cortical disruption. No dislocation. Right hip fixation hardware. No gross soft tissue abnormality. Impression: Osteopenia. No evidence for fracture or dislocation. Electronically signed on Jun 28, 2017 11:44:31 AM CDT by: Luis Enrique Bernal - Orders Orders: ED Orders Category Date Time Status Place IV Lock 1T Care 06/28/17 10:[address] BRAIN W/O CONTRAST Stat Exams 06/28/17 Ordered LT HIP 2VIEW COMPLETE [RAD] Stat Exams 06/28/17 Ordered CBC/PLATELET/DIFF Routine Lab 06/28/17 Ordered CMP Routine Lab 06/28/17 Ordered Ketorolac Tromethamine [Toradol] Med 06/28/17 10:35 Once 30 mg IM NOW ONE NORMAL SALINE @ 1000 MLS/HR ( 1000ml BOLUS) Med 06/28/17 10:37 Ordered 0.9 % Sodium Chloride [Normal Saline] 1,000 ml IV Q1H Oxygen Daily Oxygen 06/28/17 10:45 Ordered Fall Physical Exam - Physical Exam General Appearance: no acute distress, alert Head: non-tender, trauma (small raised red area on forehead approx 2 cm circular ) Neck: non-tender Eye: DARBY ENT: nml external inspection Resp/CVS: chest non-tender, no ecchymosis, breath sounds nml, no resp. distress , heart sounds nml Abdomen: soft, normal bowel sounds Neuro: oriented x3, CN's nml as tested, sensation nml, motor nml, mood/affect nml, group home paraprofessional nml, reflexes nml Skin: color nml, no rash Back: normal inspection Extremities: pelvis stable, no pedal edema, other (pain to touch on lateral side of left hip - no obvious bony deformity Pulse + sensaion + ) Joint: No: click/crepitus - Demian Coma Score Eyes Open: Spontaneous Speech: Oriented Motor: Obeys Commands Discharge Clincal Impression: Left hip pain Fall Qualifiers: Encounter type: initial encounter Qualified Code(s): W19.XXXA - Unspecified fall, initial encounter Referrals: Dennis Ojeda MD [Primary Care Provider] - 2 Days Comments: 1. Use your walker 2. Change positions slowly 3. Follow up with PCP in 2-4 days 4. Return to ER for any concerns Condition: Stable Disposition: 01 HOME, SELF-CARE Decision to Admit: NO Date of Decison to Admit: 06/28/17 Decision Time: 11:52
[2017-06-28] MEDS ORDERED: KETOROLAC TROMETHAMINE 30 MG/1ML VIAL IVP ONE (10:47)
[2017-06-28 10:55] LABS: BASOPHILS % 0.5 (0.0-1.5); EOSINOPHILS % 3.3 % (0.0-6.8); MEAN CORPUSCULAR HEMOGLOBIN 29.3 pg (28.0-34.0); MEAN CORPUSCULAR VOLUME 97.9 fl (80.0-100.0); MONOCYTES % 5.9 % (0.0-11.0)
[2017-06-28 11:16] LABS: eGFR (African) > 60; eGFR (Non-African) > 60
[2017-06-28] MEDS ORDERED: fentaNYL CITRATE/PF 100 MCG/ 2ML AMP IVP ONE (11:59)
--- NOTE | 2017-06-28 18:19 | Diagnostic Imaging Report ---
ELIOT CABA [facility] [address] [facility] [address] [place], [place]. [address] Report Submission Date: Jun 28, 2017 11:30:21 AM CDT Patient Study Name: OVIDIO WANG Date: Jun 28, 2017 11:05:46 AM CDT Modality Type: CT\SR Gender: F Description: CT BRAIN W/O CONTRAST : 46 Institution: [facility] Physician: ELIOT CABA Examination: CT head without contrast History: CT HEAD W/O, FALL TODAY WITH PAIN AND LEFT SIDED FRONTAL CONTUSION (Hx ) Comparison exam: None available for direct review. Technique: Noncontrast head CT protocol. Findings: Ventricles and sulci are prominent. Cerebrocerebellar parenchyma demonstrates periventricular low attenuation consistent with small vessel disease. No evidence for parenchymal hemorrhage. No evidence for mass or mass effect. No midline shift. No extra axial fluid collections. Partial visualization of the paranasal sinuses, mastoid air cells, orbits, skull and scalp without gross irregularity. Impression: Age related changes. No acute parenchymal process. No hemorrhage. Electronically signed on Jun 28, 2017 11:30:21 AM CDT by: Luis Enrique NEWMAN
--- NOTE | 2017-06-28 18:20 | Diagnostic Imaging Report ---
ELIOT CABA [facility] [address] [facility] [address] [address] [place], [place]. [address] Report Submission Date: Jun 28, 2017 11:44:31 AM CDT Patient Study Name: OVIDIO WANG Date: Jun 28, 2017 11:12:21 AM CDT Modality Type: DX Gender: F Description: PELVIS : 46 Institution: [facility] Physician: ELIOT CABA Examination: Plain film left hip History: LEFT HIP & PELVIS, LEFT SIDED HIP PAIN AFTER FALL TODAY (Hx) Comparison exams: None provided Findings: 2 views of the left hip demonstrates osteopenia. No evidence for cortical disruption. No dislocation. Right hip fixation hardware. No gross soft tissue abnormality. Impression: Osteopenia. No evidence for fracture or dislocation. Electronically signed on Jun 28, 2017 11:44:31 AM CDT by: Luis Enrique NEWMAN
== END 2017-06-28 12:16 | disposition home or self-care (01) ==
LOC: ED 10:32
DX: M25.552 Pain in left hip (principal); W01.198A Fall on same level from slipping, tripping and stumbling with subsequent striking against other object, initial encounter; Y93.89 Activity, other specified; Y92.009 Unspecified place in unspecified non-institutional (private) residence as the place of occurrence of the external cause
CPT/HCPCS: 70450; 73502; 80053; 85025; J1885; J3010; 96365; 96375; 99283; S1016

== ENCOUNTER 2017-07-10 14:11 | Outpatient (CLI) | payer MEDICARE, OTHER ==
[2017-07-10 14:34] LABS: BASOPHILS % 0.4 (0.0-1.5); MEAN CORPUSCULAR HEMOGLOBIN 28.8 pg (28.0-34.0); MEAN CORPUSCULAR VOLUME 101.2 fl (80.0-100.0); MONOCYTES % 5.6 % (0.0-11.0); NEUTROPHILS # 4.2 # k/uL (1.4-7.7)
[2017-07-10 14:52] LABS: ABG BASE EXCESS -3.2 (-2 - +2); ABG PH 7.44 (7.35-7.45)
[2017-07-10 15:07] LABS: eGFR (African) > 60; eGFR (Non-African) > 60
== END 2017-07-10 14:13 ==
LOC: LAB 14:11
PROVIDERS: ATTEND Family Medicine
DX: R41.0 Disorientation, unspecified (principal)
CPT/HCPCS: 36415; 36600; 80053; 82803; 85025

== ENCOUNTER 2017-07-27 13:30 | Outpatient (CLI) | payer MEDICARE, OTHER ==
[2017-07-27 13:42] LABS: BASOPHILS % 0.6 (0.0-1.5); EOSINOPHILS % 1.4 % (0.0-6.8); MEAN CORPUSCULAR HEMOGLOBIN 29.3 pg (28.0-34.0); MEAN CORPUSCULAR VOLUME 98.3 fl (80.0-100.0); MONOCYTES % 5.4 % (0.0-11.0); NEUTROPHILS # 3.9 # k/uL (1.4-7.7)
[2017-07-27 13:47] LABS: eGFR (African) > 60; eGFR (Non-African) > 60
== END 2017-07-27 14:18 ==
LOC: LABRHC 13:30
PROVIDERS: ATTEND Family Medicine
DX: I50.9 Heart failure, unspecified (principal)
CPT/HCPCS: 80053; 83880; 85025

== ENCOUNTER 2017-08-01 12:49 | Outpatient (CLI) | payer MEDICARE, OTHER ==
[2017-08-01 13:58] LABS: eGFR (African) > 60; eGFR (Non-African) > 60
== END 2017-08-01 12:50 ==
LOC: LAB 12:49
PROVIDERS: ATTEND Physician Assistant
DX: E87.5 Hyperkalemia (principal)
CPT/HCPCS: 36415; 80048

== ENCOUNTER 2017-09-15 14:58 | Outpatient (CLI) | payer MEDICARE, OTHER | END 2017-09-15 15:03 | LOC: POD 14:58 | PROVIDERS: ATTEND Podiatrist | DX: B35.1 Tinea unguium (principal); M79.674 Pain in right toe(s); M79.675 Pain in left toe(s) | CPT/HCPCS: 11721; G0463 ==

== ENCOUNTER 2017-11-16 17:02 | Outpatient (CLI) | payer MEDICARE, OTHER | END 2017-11-16 17:03 | LOC: LABRHC 17:02 | PROVIDERS: ATTEND Family Medicine | DX: S01.80XA Unspecified open wound of other part of head, initial encounter (principal); X58.XXXA Exposure to other specified factors, initial encounter; Y92.9 Unspecified place or not applicable; Y93.9 Activity, unspecified; Y99.9 Unspecified external cause status | CPT/HCPCS: 87070 ==

== ENCOUNTER 2017-12-20 13:16 | Outpatient (CLI) | payer MEDICARE, OTHER ==
[2017-12-20 14:01] LABS: eGFR (Non-African) 40
== END 2017-12-20 13:18 ==
LOC: LAB 13:16
PROVIDERS: ATTEND Internal Medicine Cardiovascular Disease
DX: I10 Essential (primary) hypertension (principal); I48.1 Persistent atrial fibrillation
CPT/HCPCS: 36415; 80048

== ENCOUNTER 2017-12-29 09:16 | Outpatient (CLI) | payer MEDICARE, OTHER ==
[2017-12-29 10:01] LABS: eGFR (Non-African) 40
== END 2017-12-29 09:20 ==
LOC: LAB 09:16
PROVIDERS: ATTEND Internal Medicine Cardiovascular Disease
DX: I10 Essential (primary) hypertension (principal); I50.23 Acute on chronic systolic (congestive) heart failure
CPT/HCPCS: 36415; 80048